=== PATIENT | male | born 1995 | race Caucasian/White ===

== ENCOUNTER 2017-02-06 18:41 | Emergency (ER) | payer MEDICARE ==
--- NOTE | 2017-02-06 18:54 | ERPHSYRPT ---
- History of Present Illness Time Seen by Provider: 02/06/17 18:46 Source: patient Patient Subjective Stated Complaint: pt c/o toothache to rigth jaw for the past few days. Triage Nursing Assessment: pt pink, warm, dry. dental caries noted. pt afebrile. no facial swelling noted. Physician History: CC: tooth pain Hx: 21 y/o patient with right sided toothache on top and bottom for a couple of weeks. Some swelling. Has dental appt tomorrow. No fever. No other complaints. Severity: moderate Allergies/Adverse Reactions: levetiracetam [From [facility]] Adverse Reaction (Severe, Verified 02/06/17 18:50) MEAN morphine Adverse Reaction (Severe, Verified 02/06/17 18:50) Rash makes pt mean Home Medications: Carbamazepine 200 mg [Tegretol 200 MG] 400 mg PO BID 10/03/14 [History] Hx Tetanus, Diphtheria Vaccination/Date Given: Yes (up to date) Hx Influenza Vaccination/Date Given: No Hx Pneumococcal Vaccination/Date Given: No Immunizations Up to Date: Yes - Review of Systems Constitutional: No Fever Ears, Nose, & Throat: Mouth Pain Respiratory: No Dyspnea Abdominal/Gastrointestinal: No Vomiting - Past Medical History Pertinent Past Medical History: Yes Neurological History: Seizures ENT History: No Pertinent History Cardiac History: No Pertinent History Respiratory History: No Pertinent History Endocrine Medical History: No Pertinent History Musculoskeletal History: No Pertinent History GI Medical History: No Pertinent History History: No Pertinent History Psycho-Social History: Anxiety, Attention Deficit Disorder, Bipolar, Depression , Other Male Reproductive Disorders: No Pertinent History Other Medical History: MRSA - left shoulder wound - Past Surgical History Past Surgical History: Yes Neuro Surgical History: No Pertinent History Cardiac: No Pertinent History Respiratory: No Pertinent History Gastrointestinal: No Pertinent History Genitourinary: No Pertinent History Musculoskeletal: No Pertinent History Male Surgical History: No Pertinent History Other Surgical History: TONSILS - Social History Smoking Status: Never smoker (chews) How long have you smoked: 7 years Exposure to second hand smoke: Yes Drug Use: none Patient Lives Alone: No Significant Family History: no pertinent family hx - Nursing Vital Signs Nursing Vital Signs: Initial Vital Signs Temperature 98.0 F Temperature Source Oral Pulse Rate 98 Respiratory Rate 18 Blood Pressure [Right Arm] 136/80 Pain Intensity 9 - Physical Exam General Appearance: alert Eye Exam: bilateral eye: PERRL, EOMI Throat Exam: pharynx normal Neck Exam: normal inspection, non-tender, supple Cardiovascular/Respiratory Exam: regular rate/rhythm Neurologic Exam: alert, oriented x 3, cooperative Skin Exam: warm, dry, No rash SpO2: 98 Oxygen Delivery: Room Air Comments: poor dentition with gingival disease. Caries. Tender right lower premolar and right upper 1st molar with some surrounding swelling. No trismus. No facial cellulitis. - Course Nursing assessment & vital signs reviewed: Yes - Progress Progress Note: 02/06/17 18:52 Advised dental follow up. Rx amoxil and motrin. Counseled pt/family regarding: diagnosis, need for follow-up - Departure Time of Disposition: 18:53 Departure Disposition: Home Clinical Impression: Tooth ache, odontogenic abscess Condition: Stable Critical Care Time: No Referrals: JEFFERY PIERRE [Primary Care Provider] - Instructions: Tooth Decay Additional Instructions: Rx amoxil. Rx motrin=ibuprofen for pain. See dentist as soon as possible for recheck. Prescriptions: Ibuprofen 1 tab PO Q6H PRN PRN #24 tablet PRN Reason: pain Amoxicillin [Amoxil] 1 cap PO TID #30 capsule
[2017-02-06 19:00] VITALS: BP 118/70; PULSE 78; O2SAT 100
== END 2017-02-06 19:00 | disposition home or self-care (01) ==
LOC: ED 18:41
DX: K08.89 Other specified disorders of teeth and supporting structures (principal); K04.7 Periapical abscess without sinus; K05.10 Chronic gingivitis, plaque induced; K02.9 Dental caries, unspecified
CPT/HCPCS: 99282; 99283

== ENCOUNTER 2017-03-03 18:02 | Emergency (ER) | payer MEDICARE ==
[2017-03-03 18:11] VITALS: BP 118/55; PULSE 59; O2SAT 100
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
== END 2017-03-03 18:56 | disposition home or self-care (01) ==
LOC: ED 18:02
DX: K00.7 Teething syndrome (principal)
CPT/HCPCS: 99281

== ENCOUNTER 2018-03-22 15:38 | Emergency (ER) | payer MEDICARE ==
[2018-03-22 15:51] VITALS: BP 131/81; PULSE 80; O2SAT 99
--- NOTE | 2018-03-22 16:06 | ERPHSYRPT ---
- History of Present Illness Time Seen by Provider: 03/22/18 15:58 Source: patient Exam Limitations: no limitations Patient Subjective Stated Complaint: Abscess to right shoulder and right lower leg Triage Nursing Assessment: Pt presents to the ED with complaints of abscess to right upper arm and right lower leg. Pt states onset x2 days. Wounds are scabbed , mild redness noted around both scabs. No distress noted, skin pwd. Pt states drainage from wounds x2 days. Physician History: The patient is a 22-year-old male with his mother complaining of a abscess on his right shoulder and an abscess on his right lower leg for 2 days. He has scratched, picked, and squeezed them without producing pus. He's also poked needles in without any pus. The one on his leg is beginning to hurt. He has had MRSA before and is worried. He denies fever or chills. His past medical history is significant for seizure disorder and MRSA infections. Timing/Duration: yesterday Quality: painful Severity: moderate Location: extremities (right shoulder and right lower leg.) Possible Causes: no cause identified Associated Symptoms: rash Allergies/Adverse Reactions: levetiracetam [From [facility]] Adverse Reaction (Severe, Verified 03/03/17 18:03) MEAN morphine Adverse Reaction (Severe, Verified 03/03/17 18:03) Rash makes pt mean Home Medications: Divalproex Sodium ER 250 mg [Depakote EXTENDED RELEASE 250 MG] 500 mg PO BID 03/03/17 [History] Hx Tetanus, Diphtheria Vaccination/Date Given: Yes Hx Influenza Vaccination/Date Given: No Hx Pneumococcal Vaccination/Date Given: No Immunizations Up to Date: No - Review of Systems Constitutional: No Fever, No Chills Eyes: No Symptoms Ears, Nose, & Throat: No Symptoms Respiratory: No Cough, No Dyspnea Cardiac: No Chest Pain, No Edema, No Syncope Abdominal/Gastrointestinal: No Abdominal Pain, No Nausea, No Vomiting, No Diarrhea Genitourinary Symptoms: No Dysuria Musculoskeletal: No Back Pain, No Neck Pain Skin: Cellulitis Neurological: No Dizziness, No Focal Weakness, No Sensory Changes Psychological: No Symptoms Endocrine: No Symptoms Hematologic/Lymphatic: No Symptoms Immunological/Allergic: No Symptoms All Other Systems: Reviewed and Negative - Past Medical History Pertinent Past Medical History: Yes Neurological History: Seizures ENT History: No Pertinent History Cardiac History: No Pertinent History Respiratory History: No Pertinent History Endocrine Medical History: No Pertinent History Musculoskeletal History: No Pertinent History GI Medical History: No Pertinent History History: No Pertinent History Psycho-Social History: Anxiety, Attention Deficit Disorder, Bipolar, Depression , Other Male Reproductive Disorders: No Pertinent History Other Medical History: MRSA - left shoulder wound. spleen injury - Past Surgical History Past Surgical History: Yes Neuro Surgical History: No Pertinent History Cardiac: No Pertinent History Respiratory: No Pertinent History Gastrointestinal: No Pertinent History Genitourinary: No Pertinent History Musculoskeletal: No Pertinent History Male Surgical History: No Pertinent History Other Surgical History: TONSILS - Social History Smoking Status: Current every day smoker How long have you smoked: 10 years Exposure to second hand smoke: Yes Drug Use: marijuana Patient Lives Alone: No Significant Family History: no pertinent family hx - Nursing Vital Signs Nursing Vital Signs: Initial Vital Signs Temperature 97.9 F 03/22/18 15:46 Pulse Rate 80 03/22/18 15:46 Respiratory Rate 16 03/22/18 15:46 Blood Pressure 131/81 03/22/18 15:46 O2 Sat by Pulse Oximetry 99 03/22/18 15:46 Pain Scale Pain Intensity 4 - Physical Exam General Appearance: no apparent distress, alert Eye Exam: PERRL/EOMI, eyes nml inspection Ears, Nose, Throat Exam: normal ENT inspection, pharynx normal, moist mucous membranes Neck Exam: normal inspection, non-tender, supple, full range of motion Respiratory Exam: normal breath sounds, lungs clear, No respiratory distress Cardiovascular Exam: regular rate/rhythm, normal heart sounds Gastrointestinal/Abdomen Exam: soft, mass, No tenderness Rectal Exam: not done Back Exam: normal inspection, normal range of motion, No CVA tenderness, No vertebral tenderness Extremity Exam: normal inspection, normal range of motion Neurologic Exam: alert, oriented x 3, cooperative, normal mood/affect, sensation nml, No motor deficits Skin Exam: normal color, other (Examination of the right anterior shoulder and upper arm reveals an approximate 1 cm circular abscess without fluctuance. There is surrounding erythema of minimal proportion. Examination of the right lower leg reveals a 1 cm circular abscess without fluctuance. There is significant surrounding erythema and tenderness.) SpO2 Interpretation: normal SpO2: 99 Oxygen Delivery: Room Air - Progress Progress: unchanged Counseled pt/family regarding: diagnosis, need for follow-up - Departure Time of Disposition: 16:13 Departure Disposition: Home Clinical Impression: Cellulitis Condition: Stable Critical Care Time: No Referrals: JEFFERY PIERRE [Primary Care Provider] - Additional Instructions: You have 2 areas of cellulitis. Take clindamycin 3 mg 4 times a day for 10 days. Take Tylenol No. 3 one tablet every 4-6 hours as needed for pain. You may also take ibuprofen 800 mg every 8 hours for pain. Follow-up in 2-3 days if no improvement. Prescriptions: Clindamycin HCl 1 cap PO QID #40 capsule Codeine Phosphate/APAP #3 [Tylenol #3 Tablet] 1 tab PO Q4-6HPRN PRN #10 tablet PRN Reason: Pain
== END 2018-03-22 16:32 | disposition home or self-care (01) ==
LOC: ED 15:38
DX: L03.113 Cellulitis of right upper limb (principal); L03.115 Cellulitis of right lower limb
CPT/HCPCS: 99283

== ENCOUNTER 2019-04-17 00:24 | Emergency (ER) | payer MEDICARE ==
[2019-04-17] MEDS ORDERED: Adacel Vial IM ONE ×2 (01:12→01:41)
[2019-04-17] MEDS ORDERED: BACIGUENT PACKET TP ONE (01:12)
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
[2019-04-17] MEDS ORDERED: BACIGUENT PACKET ONE (01:40)
[2019-04-17 01:54] LABS: BASOPHIL % 0.1 % (0.0-0.4); Basophil (Absolute #) 0.01 (0-0.4); Eosinophil % 1.7 % (0.00-5.0); Eosinophil (Absolute #) 0.25 (0-0.5); Granulocyte Absolute (ANC) 9.92 (1.4-6.9); Granulocytes % 68.6 % (36.0-66.0); Hematocrit 39.3 % (42-50); Hemoglobin 13.4 gm/dl (12.5-18.0); Lymphocyte (Absolute #) 2.67 (1.0-4.6); Lymphocytes % 18.5 % (24.0-44.0); Mean Cell Volume 88.3 fl (78-100); Mean Corpuscular Hemoglobin 30.1 pg (26-32); Mean Corpuscular Hgb Concent. 34.1 g/dl (32-36); Mean Platelet Volume 10.8 fl (6-9.5); Monocyte (Absolute #) 1.61 (0.0-1.3); Monocytes % 11.1 % (0.0-12.0); Platelet Count 293 K/mm3 (150-450); Red Blood Count 4.45 M/mm3 (4.1-5.6); White Blood Count 14.5 K/mm3 (4.0-10.5)
[2019-04-17 02:00] LABS: ALBUMIN 4.1 g/dL (3.5-5.0); ALKALINE PHOSPHATASE 101 U/L (38-126); ANION GAP 10.8 MEQ/L (5-15); BLOOD UREA NITROGEN 17 mg/dL (9-20); CHLORIDE 104 mmol/L (98-107); Carbon Dioxide 27 mmol/L (22-30); Creatinine 1 0.78 mg/dL (0.66-1.25); Glucose 94 mg/dL (74-106); Potassium 3.2 mmol/L (3.5-5.1); SGOT/AST 61 U/L (17-59); SGPT/ALT 18 U/L (0-50); SODIUM 139 mmol/L (137-145); Total Protein 7.2 g/dL (6.3-8.2)
[2019-04-17 02:03] LABS: ACETAMINOPHEN < 10 ug/ml (10-30); ETHYL ALCOHOL < 10 mg/dL (0-10); SALICYLATE < 1.0 mg/dL (2-20)
[2019-04-17 02:43] LABS: Appearance SLIGHTLY CLOUDY (CLEAR); Bilirubin NEGATIVE (NEGATIVE); Blood NEGATIVE Ery/ul (0-5); Glucose NEGATIVE (NEGATIVE); Ketones NEGATIVE (NEGATIVE); Leukocyte Esterase TRACE (NEGATIVE); Mucus SLIGHT /HPF (NEGATIVE); Nitrite NEGATIVE (NEGATIVE); Protein,Urine Dip 30 (Negative); RBC 0-2 /HPF (0-2); Specific Gravity 1.028 (1.005-1.025); Urobilinogen 4 mg/dL (0-1)
[2019-04-17 02:45] LABS: Bacteria NONE SEEN /HPF (NEGATIVE)
[2019-04-17 02:54] LABS: Barbiturate,Urine NEGATIVE (NEGATIVE); Benzodiazepine,Urine NEGATIVE (NEGATIVE); Cocaine,Urine NEGATIVE (NEGATIVE); Methadone,Urine NEGATIVE (NEGATIVE); Opiate,Urine NEGATIVE (NEGATIVE); PCP,Urine NEGATIVE (NEGATIVE); THC,Urine POSITIVE (NEGATIVE)
[2019-04-17 03:41] LABS: Amphetamine,Urine POSITIVE (NEGATIVE)
[2019-04-17 05:32] VITALS: BP 102/57; PULSE 80; O2SAT 98
== END 2019-04-17 05:34 | disposition short-term general hospital (02) ==
LOC: ED 00:24
DX: R45.851 Suicidal ideations (principal); F15.10 Other stimulant abuse, uncomplicated; F12.10 Cannabis abuse, uncomplicated; R45.4 Irritability and anger; F31.9 Bipolar disorder, unspecified; Z86.14 Personal history of Methicillin resistant Staphylococcus aureus infection; Z79.899 Other long term (current) drug therapy
CPT/HCPCS: 36415; 80053; 80307; 81001; 85025; 87086; 90471; 93005; 99285; G0480; G0481; 90715; A9270-GY

== ENCOUNTER 2019-12-06 13:34 | Emergency (ER) | payer MEDICARE ==
[2019-12-06] MEDS ORDERED: BACIGUENT PACKET TP ONE (13:47)
[2019-12-06] MEDS ORDERED: BACIGUENT PACKET ONE (13:52)
[2019-12-06 14:00] LABS: Absolute Neutrophil Ct (ANC) 13.31 (1.4-6.9); BASOPHIL % 0.2 % (0.0-0.4); Basophil (Absolute #) 0.03 (0-0.4); Eosinophil % 0.4 % (0.00-5.0); Eosinophil (Absolute #) 0.07 (0-0.5); Hematocrit 41.2 % (42-50); Hemoglobin 14.3 gm/dl (12.5-18.0); Lymphocyte (Absolute #) 2.16 (1.0-4.6); Lymphocytes % 12.2 % (24.0-44.0); Mean Cell Volume 85.1 fl (78-100); Mean Corpuscular Hemoglobin 29.5 pg (26-32); Mean Corpuscular Hgb Concent. 34.7 g/dl (32-36); Mean Platelet Volume 10.1 fl (7.5-11.0); Monocytes % 11.9 % (0.0-12.0); Neutrophil % 75.3 % (36.0-66.0); Platelet Count 338 K/mm3 (150-450); Red Blood Count 4.84 M/mm3 (4.1-5.6); Red Cell Distribution Width 13.4 % (11.5-14.0); White Blood Count 17.7 K/mm3 (4.0-10.5)
--- NOTE | 2019-12-06 14:00 | ERPHSYRPT ---
- History of Present Illness Time Seen by Provider: 12/06/19 13:35 Source: patient Exam Limitations: no limitations Patient Subjective Stated Complaint: Pt c/o of wounds on his right back shoulder , large reddened area on right shoulder blade with what appears to be 2 abrasions, pt denies injury, pt states that it just appeared within the past couple of hours and he is acting in an odd behavior, very fidgety, unable to explain what is going on Triage Nursing Assessment: Pt brought to the ER by his mother, mother states that pt continues to "freak out" and keeps pulling at his sweatshirt, pt keeps looking all around the room and is unable to focus, pt has to abrasion looking wounds to the right shoulder blade, top layer of skin missing, tachycardic, pulses normal Physician History: Patient complains of burning sensation to posterior right shoulder that he states came on spontaneously. Patient states he has a history of MRSA and is concerned for this. Patient denies any injury to the area. Timing/Duration: today, constant, sudden Quality: burning, painful Severity: moderate Location: torso Possible Causes: no cause identified Associated Symptoms: paresthesia, rash, No blisters, No change in skin texture, No difficulty breathing, No edema, No fever, No flushing, No headache, No hives , No jaundice, No malaise, No nasal congestion, No numbness, No pallor, No petechiae, No sore throat, No tingling Allergies/Adverse Reactions: levetiracetam [From [facility]] Adverse Reaction (Severe, Verified 12/06/19 13:53) MEAN morphine Adverse Reaction (Severe, Verified 12/06/19 13:53) Rash makes pt mean Hx Tetanus, Diphtheria Vaccination/Date Given: No Hx Influenza Vaccination/Date Given: No Hx Pneumococcal Vaccination/Date Given: No Immunizations Up to Date: Yes (Tdap: 04/17/2019 ) - Review of Systems Constitutional: No Fever, No Chills Eyes: No Eye Pain, No Vision Changes Ears, Nose, & Throat: No Symptoms, No Nose Congestion, No Mouth Swelling, No Hoarse, No Painful Swallowing Respiratory: No Cough, No Dyspnea Cardiac: No Chest Pain, No Edema, No Syncope Abdominal/Gastrointestinal: No Abdominal Pain, No Nausea, No Vomiting, No Diarrhea Genitourinary Symptoms: No Dysuria, No Hematuria, No Flank Pain Musculoskeletal: No Back Pain, No Neck Pain Skin: Cellulitis, No Pruritis Neurological: No Dizziness, No Focal Weakness, No Headache, No Seizure, No Sensory Changes Psychological: No Symptoms, No Alcohol Abuse, No Drug Abuse Endocrine: No Symptoms, No Polyuria Hematologic/Lymphatic: No Easy Bleeding, No Easy Bruising Immunological/Allergic: No Eczema All Other Systems: Reviewed and Negative - Past Medical History Pertinent Past Medical History: Yes Neurological History: Seizures ENT History: No Pertinent History Cardiac History: No Pertinent History Respiratory History: No Pertinent History Endocrine Medical History: No Pertinent History Musculoskeletal History: No Pertinent History GI Medical History: No Pertinent History History: No Pertinent History Psycho-Social History: Anxiety, Attention Deficit Disorder, Bipolar, Depression , Other Male Reproductive Disorders: No Pertinent History Other Medical History: MRSA - left shoulder wound. spleen injury - Past Surgical History Past Surgical History: Yes Neuro Surgical History: No Pertinent History Cardiac: No Pertinent History Respiratory: No Pertinent History Gastrointestinal: No Pertinent History Genitourinary: No Pertinent History Musculoskeletal: No Pertinent History Male Surgical History: No Pertinent History Other Surgical History: TONSILS - Social History Smoking Status: Current every day smoker How long have you smoked: 12 yrs Exposure to second hand smoke: Yes Drug Use: none Patient Lives Alone: Yes Significant Family History: no pertinent family hx - Nursing Vital Signs Nursing Vital Signs: Initial Vital Signs Temperature 97.9 F 12/06/19 13:41 Pulse Rate 110 H 12/06/19 13:41 Blood Pressure 133/114 12/06/19 13:41 O2 Sat by Pulse Oximetry 96 12/06/19 13:41 Pain Scale Pain Intensity 0 - Physical Exam General Appearance: no apparent distress, alert Eye Exam: PERRL/EOMI, eyes nml inspection, No scleral icterus Ears, Nose, Throat Exam: normal ENT inspection, pharynx normal, moist mucous membranes, dry mucous membranes, No pharyngeal erythema, No tonsillar exudate Neck Exam: normal inspection, non-tender, supple, full range of motion, No limited range of motion, No lymphadenopathy, No midline tenderness Respiratory Exam: normal breath sounds, lungs clear, airway intact, No chest tenderness, No respiratory distress, No diminished breath sounds, No accessory muscle use, No prolonged expirations, No crackles/rales Cardiovascular Exam: regular rate/rhythm, normal heart sounds, normal peripheral pulses, capillary refill <2 sec Gastrointestinal/Abdomen Exam: soft, normal bowel sounds, mass, No tenderness, No distention, No guarding, No ecchymosis Back Exam: normal inspection, normal range of motion, No CVA tenderness, No vertebral tenderness, No rash, No point tenderness Extremity Exam: normal inspection, normal range of motion Neurologic Exam: alert, oriented x 3, cooperative, superintendent local II-XII nml as tested, normal mood/affect, sensation nml, No motor deficits Skin Exam: normal color, warm, dry, rash (surrounding erythema around the two abrasions), abrasion (times two at the posterior, superior right shoulder), No petechiae, No jaundice, No cyanosis, No diaphoresis, No jaundice, No laceration SpO2 Interpretation: normal SpO2: 96 O2 Delivery: Room Air - Course Nursing assessment & vital signs reviewed: Yes - Radiology Exams Right Shoulder X-ray Interpretation: Interpreted by me, Reviewed by me, No Fracture, Nml Alignment, Nml Soft Tissues Ordered Tests: Active Orders 24 hr Category Date Time Status IV Insertion STAT Care 12/06/19 13:57 Active Wound Care STAT Care 12/06/19 13:58 Active SHOULDER Stat Exams 12/06/19 13:48 Taken ACETAMINOPHEN Stat Lab 12/06/19 13:50 Completed BLOOD CULTURE Stat Lab 12/06/19 14:30 Received CBC W DIFF Stat Lab 12/06/19 13:45 Completed CMP Stat Lab 12/06/19 13:50 Completed CULTURE,URINE Stat Lab 12/06/19 15:35 Received CULTURE,WOUND Stat Lab 12/06/19 14:08 Received ETHYL ALCOHOL Stat Lab 12/06/19 13:50 Completed Lactic Acid Stat Lab 12/06/19 13:45 Completed PROTIME WITH INR Stat Lab 12/06/19 14:08 Completed PTT Stat Lab 12/06/19 14:08 Completed SALICYLATE Stat Lab 12/06/19 13:50 Completed SED RATE [Erythrocyte Sedimentation Rate] Stat Lab 12/06/19 13:50 Completed UA W/RFX UR CULTURE Stat Lab 12/06/19 15:35 Completed Urine Triage Profile Stat Lab 12/06/19 15:35 Completed Medication Summary Discontinued Medications Generic Name Dose Route Start Last Admin Trade Name Freq PRN Reason Stop Dose Admin Bacitracin Zinc 0.9 gm 12/06/19 13:47 12/06/19 13:58 Baciguent Packet TP 12/06/19 13:48 0.9 gm STAT ONE Administration Bacitracin Zinc Confirm 12/06/19 13:52 Baciguent Packet Administered 12/06/19 13:53 Dose 1 gm .ROUTE .STK-MED ONE Diphenhydramine HCl 50 mg 12/06/19 15:18 12/06/19 15:28 Benadryl 50 Mg/Ml IV 12/06/19 15:19 50 mg STAT ONE Administration Diphenhydramine HCl Confirm 12/06/19 15:27 Benadryl 50 Mg/Ml Administered 12/06/19 15:28 Dose 50 mg .ROUTE .STK-MED ONE Clindamycin HCl/Dextrose 600 mg in 50 mls @ 100 mls/hr 12/06/19 14:05 14:42 Clindamycin-D5w 600 Mg/50 Ml IV 12/06/19 14:34 Infused STAT STA Infusion Clindamycin HCl/Dextrose Confirm 12/06/19 14:09 Clindamycin-D5w 600 Mg/50 Ml Administered 12/06/19 14:10 Dose 600 mg in 50 mls @ ud IV .STK-MED ONE Potassium Chloride 40 meq 12/06/19 14:18 12/06/19 14:40 Klor Con 10 Meq PO 12/06/19 14:19 40 meq STAT ONE Administration Potassium Chloride Confirm 12/06/19 14:39 Klor Con 10 Meq Administered 12/06/19 14:40 Dose 40 meq PO .STK-MED ONE Lab/Rad Data: Laboratory Result Diagrams 12/06/19 13:45 12/06/19 13:50 Laboratory Results 12/06/19 12/06/19 12/06/19 Range/Units 15:35 15:35 14:08 WBC (4.0-10.5) K/mm3 RBC (4.1-5.6) M/mm3 Hgb (12.5-18.0) gm/dl Hct (42-50) % MCV (78-100) fl MCH (26-32) pg MCHC (32-36) g/dl RDW (11.5-14.0) % Plt Count (150-450) K/mm3 MPV (7.5-11.0) fl Gran % (36.0-66.0) % Eos # (Auto) (0-0.5) Absolute Lymphs (auto) (1.0-4.6) Absolute Monos (auto) (0.0-1.3) Lymphocytes % (24.0-44.0) % Monocytes % (0.0-12.0) % Eosinophils % (0.00-5.0) % Basophils % (0.0-0.4) % Absolute Granulocytes (1.4-6.9) Basophils # (0-0.4) ESR (0-15) mm/hr PT 14.2 H (8.83-12.87) SECONDS INR 1.25 (0.8-3.0) APTT 33.7 (24.1-36.1) SECONDS Sodium (137-145) mmol/L Potassium (3.5-5.1) mmol/L Chloride (98-107) mmol/L Carbon Dioxide (22-30) mmol/L Anion Gap (5-15) MEQ/L BUN (9-20) mg/dL Creatinine (0.66-1.25) mg/dL Estimated GFR ML/MIN Glucose (74-106) mg/dL Lactic Acid (0.4-2.0) Calcium (8.4-10.2) mg/dL Total Bilirubin (0.2-1.3) mg/dL AST (17-59) U/L ALT (0-50) U/L Alkaline Phosphatase (38-126) U/L Serum Total Protein (6.3-8.2) g/dL Albumin (3.5-5.0) g/dL Urine Color YELLOW (YELLOW) Urine Appearance SLIGHTLY CLOUDY (CLEAR) Urine pH 5.0 (5-6) Ur Specific [place] 1.021 (1.005-1.025) Urine Protein NEGATIVE (Negative) Urine Ketones TRACE (NEGATIVE) Urine Blood NEGATIVE (0-5) Lloyd/ul Urine Nitrite NEGATIVE (NEGATIVE) Urine Bilirubin NEGATIVE (NEGATIVE) Urine Urobilinogen 2 (0-1) mg/dL Ur Leukocyte Esterase NEGATIVE (NEGATIVE) Urine WBC (Auto) 0-2 (0-5) /HPF Urine RBC (Auto) NONE (0-2) /HPF U Epithel Cells (Auto) NONE (FEW) /HPF Urine Bacteria (Auto) NONE (NEGATIVE) /HPF Urine Mucus (Auto) SLIGHT (NEGATIVE) /HPF Urine Culture Reflexed ORDERED SEPARATELY (NO) Urine Glucose NEGATIVE (NEGATIVE) mg/dL Salicylates (2-20) mg/dL Urine Opiates Level NEGATIVE (NEGATIVE) Ur Methadone NEGATIVE (NEGATIVE) Acetaminophen (10-30) ug/ml Urine Barbiturates NEGATIVE (NEGATIVE) Ur Phencyclidine (PCP) NEGATIVE (NEGATIVE) Urine Amphetamine POSITIVE (NEGATIVE) U Benzodiazepine Level NEGATIVE (NEGATIVE) Urine Cocaine NEGATIVE (NEGATIVE) Urine Marijuana (THC) NEGATIVE (NEGATIVE) Ethyl Alcohol (0-10) mg/dL Slides for Path Review 12/06/19 12/06/19 12/06/19 Range/Units 13:50 13:50 13:50 WBC (4.0-10.5) K/mm3 RBC (4.1-5.6) M/mm3 Hgb (12.5-18.0) gm/dl Hct (42-50) % MCV (78-100) fl MCH (26-32) pg MCHC (32-36) g/dl RDW (11.5-14.0) % Plt Count (150-450) K/mm3 MPV (7.5-11.0) fl Gran % (36.0-66.0) % Eos # (Auto) (0-0.5) Absolute Lymphs (auto) (1.0-4.6) Absolute Monos (auto) (0.0-1.3) Lymphocytes % (24.0-44.0) % Monocytes % (0.0-12.0) % Eosinophils % (0.00-5.0) % Basophils % (0.0-0.4) % Absolute Granulocytes (1.4-6.9) Basophils # (0-0.4) ESR 10 (0-15) mm/hr PT (8.83-12.87) SECONDS INR (0.8-3.0) APTT (24.1-36.1) SECONDS Sodium (137-145) mmol/L Potassium (3.5-5.1) mmol/L Chloride (98-107) mmol/L Carbon Dioxide (22-30) mmol/L Anion Gap (5-15) MEQ/L BUN (9-20) mg/dL Creatinine (0.66-1.25) mg/dL Estimated GFR ML/MIN Glucose (74-106) mg/dL Lactic Acid (0.4-2.0) Calcium (8.4-10.2) mg/dL Total Bilirubin (0.2-1.3) mg/dL AST (17-59) U/L ALT (0-50) U/L Alkaline Phosphatase (38-126) U/L Serum Total Protein (6.3-8.2) g/dL Albumin (3.5-5.0) g/dL Urine Color (YELLOW) Urine Appearance (CLEAR) Urine pH (5-6) Ur Specific [place] (1.005-1.025) Urine Protein (Negative) Urine Ketones (NEGATIVE) Urine Blood (0-5) Lloyd/ul Urine Nitrite (NEGATIVE) Urine Bilirubin (NEGATIVE) Urine Urobilinogen (0-1) mg/dL Ur Leukocyte Esterase (NEGATIVE) Urine WBC (Auto) (0-5) /HPF Urine RBC (Auto) (0-2) /HPF U Epithel Cells (Auto) (FEW) /HPF Urine Bacteria (Auto) (NEGATIVE) /HPF Urine Mucus (Auto) (NEGATIVE) /HPF Urine Culture Reflexed (NO) Urine Glucose (NEGATIVE) mg/dL Salicylates < 1.0 L (2-20) mg/dL Urine Opiates Level (NEGATIVE) Ur Methadone (NEGATIVE) Acetaminophen < 10 L (10-30) ug/ml Urine Barbiturates (NEGATIVE) Ur Phencyclidine (PCP) (NEGATIVE) Urine Amphetamine (NEGATIVE) U Benzodiazepine Level (NEGATIVE) Urine Cocaine (NEGATIVE) Urine Marijuana (THC) (NEGATIVE) Ethyl Alcohol < 10 (0-10) mg/dL Slides for Path Review 12/06/19 12/06/19 12/06/19 Range/Units 13:50 13:45 13:45 WBC 17.7 H (4.0-10.5) K/mm3 RBC 4.84 (4.1-5.6) M/mm3 Hgb 14.3 (12.5-18.0) gm/dl Hct 41.2 L (42-50) % MCV 85.1 (78-100) fl MCH 29.5 (26-32) pg MCHC 34.7 (32-36) g/dl RDW 13.4 (11.5-14.0) % Plt Count 338 (150-450) K/mm3 MPV 10.1 (7.5-11.0) fl Gran % 75.3 H (36.0-66.0) % Eos # (Auto) 0.07 (0-0.5) Absolute Lymphs (auto) 2.16 (1.0-4.6) Absolute Monos (auto) 2.10 H (0.0-1.3) Lymphocytes % 12.2 L (24.0-44.0) % Monocytes % 11.9 (0.0-12.0) % Eosinophils % 0.4 (0.00-5.0) % Basophils % 0.2 (0.0-0.4) % Absolute Granulocytes 13.31 H (1.4-6.9) Basophils # 0.03 (0-0.4) ESR (0-15) mm/hr PT (8.83-12.87) SECONDS INR (0.8-3.0) APTT (24.1-36.1) SECONDS Sodium 139 (137-145) mmol/L Potassium 3.4 L (3.5-5.1) mmol/L Chloride 104 (98-107) mmol/L Carbon Dioxide 26 (22-30) mmol/L Anion Gap 12.5 (5-15) MEQ/L BUN 15 (9-20) mg/dL Creatinine 0.85 (0.66-1.25) mg/dL Estimated GFR > 60.0 ML/MIN Glucose 111 H (74-106) mg/dL Lactic Acid 1.4 (0.4-2.0) Calcium 9.8 (8.4-10.2) mg/dL Total Bilirubin 0.80 (0.2-1.3) mg/dL AST 40 (17-59) U/L ALT 46 (0-50) U/L Alkaline Phosphatase 136 H (38-126) U/L Serum Total Protein 8.3 H (6.3-8.2) g/dL Albumin 4.8 (3.5-5.0) g/dL Urine Color (YELLOW) Urine Appearance (CLEAR) Urine pH (5-6) Ur Specific [place] (1.005-1.025) Urine Protein (Negative) Urine Ketones (NEGATIVE) Urine Blood (0-5) Lloyd/ul Urine Nitrite (NEGATIVE) Urine Bilirubin (NEGATIVE) Urine Urobilinogen (0-1) mg/dL Ur Leukocyte Esterase (NEGATIVE) Urine WBC (Auto) (0-5) /HPF Urine RBC (Auto) (0-2) /HPF U Epithel Cells (Auto) (FEW) /HPF Urine Bacteria (Auto) (NEGATIVE) /HPF Urine Mucus (Auto) (NEGATIVE) /HPF Urine Culture Reflexed (NO) Urine Glucose (NEGATIVE) mg/dL Salicylates (2-20) mg/dL Urine Opiates Level (NEGATIVE) Ur Methadone (NEGATIVE) Acetaminophen (10-30) ug/ml Urine Barbiturates (NEGATIVE) Ur Phencyclidine (PCP) (NEGATIVE) Urine Amphetamine (NEGATIVE) U Benzodiazepine Level (NEGATIVE) Urine Cocaine (NEGATIVE) Urine Marijuana (THC) (NEGATIVE) Ethyl Alcohol (0-10) mg/dL Slides for Path Review YES - Progress Progress: improved Progress Note: 12/06/19 16:35 Patient's pulse has improved after IV hydration, IV clindamycin and IV Benadryl. Patient appears in no type of distress and has small decrease in redness to right posterior shoulder. 12/06/19 16:43 I reviewed the patient and patient's family about the methamphetamine on his drug screen. Patient denies any usage, but grandmother was in agreement that his behavior that was strained earlier in the visit and most likely causes tachycardia and probable elevated white count is most likely due to this and cause him to take a scan that lead to cellulitis of his right posterior shoulder. Patient did not require inpatient admission at this time and will be discharged with Bactrim to be twice daily for 10 days as well as hydroxyzine to help his Benadryl helped calm him down today. Patient is instructed on no further amphetamine use of any type and to consider counseling and attending AA/ NA meetings in the future. Counseled pt/family regarding: lab results, diagnosis, need for follow-up, rad results - Departure Departure Disposition: Home Clinical Impression: Cellulitis of right shoulder, Abrasion of right shoulder, initial encounter, Methamphetamine abuse, Elevated blood pressure reading without diagnosis of hypertension, Hypokalemia Condition: Good Critical Care Time: No Referrals: JEFFERY PIERRE [Primary Care Provider] - Follow Up with PCP/3 days Instructions: Cellulitis (Skin Infection), Adult (DC), Skin Abrasions (DC), Methamphetamine, Hypokalemia (DC) Additional Instructions: return immediately back to the emergency department if you have any fever, worsening redness to the back or shoulder, worsening pain to the shoulder, difficulty breathing, chest pain, abdominal pain, or any other concerning signs or symptoms that were not present at today's return visit for immediate reevaluation in the emergency department. Prescriptions: hydrOXYzine HCL [Hydroxyzine HCl] 50 mg PO Q6H PRN PRN #20 tablet PRN Reason: Itching Smz/Tmp Ds Tablet [Bactrim Ds Tablet] 1 tab PO Q12H #20 tablet
[2019-12-06] MEDS ORDERED: CLINDAMYCIN-D5W 600 MG/50 ML*** 600 MG/50 ML BAG IV STA (14:05)
[2019-12-06] MEDS ORDERED: CLINDAMYCIN-D5W 600 MG/50 ML*** 600 MG/50 ML BAG IV ONE (14:09)
[2019-12-06 14:11] LABS: INR 1.25 (0.8-3.0); PROTIME 14.2 SECONDS (8.83-12.87)
[2019-12-06 14:14] LABS: PTT 33.7 SECONDS (24.1-36.1)
[2019-12-06 14:14] LABS: ALBUMIN 4.8 g/dL (3.5-5.0); ALKALINE PHOSPHATASE 136 U/L (38-126); ANION GAP 12.5 MEQ/L (5-15); BLOOD UREA NITROGEN 15 mg/dL (9-20); CHLORIDE 104 mmol/L (98-107); Calcium 9.8 mg/dL (8.4-10.2); Carbon Dioxide 26 mmol/L (22-30); Creatinine 1 0.85 mg/dL (0.66-1.25); Glucose 111 mg/dL (74-106); Potassium 3.4 mmol/L (3.5-5.1); SGOT/AST 40 U/L (17-59); SGPT/ALT 46 U/L (0-50); SODIUM 139 mmol/L (137-145); Total Protein 8.3 g/dL (6.3-8.2)
[2019-12-06 14:16] LABS: ACETAMINOPHEN < 10 ug/ml (10-30); SALICYLATE < 1.0 mg/dL (2-20)
[2019-12-06] MEDS ORDERED: Klor Con 10 MEQ PO ONE ×2 (14:18→14:39)
[2019-12-06 14:35] LABS: Slide Review 1 YES
[2019-12-06] MEDS ORDERED: BENADRYL 50 MG/ML IV ONE (15:18)
[2019-12-06] MEDS ORDERED: BENADRYL 50 MG/ML ONE (15:27)
[2019-12-06 15:45] LABS: Appearance SLIGHTLY CLOUDY (CLEAR); Bilirubin NEGATIVE (NEGATIVE); Blood NEGATIVE Ery/ul (0-5); Glucose NEGATIVE (NEGATIVE); Ketones TRACE (NEGATIVE); Leukocyte Esterase NEGATIVE (NEGATIVE); Mucus SLIGHT /HPF (NEGATIVE); Nitrite NEGATIVE (NEGATIVE); Protein,Urine Dip NEGATIVE (Negative); Specific Gravity 1.021 (1.005-1.025); Urobilinogen 2 mg/dL (0-1); WBC 0-2 /HPF (0-5)
[2019-12-06 15:53] LABS: Barbiturate,Urine NEGATIVE (NEGATIVE); Benzodiazepine,Urine NEGATIVE (NEGATIVE); Cocaine,Urine NEGATIVE (NEGATIVE); Methadone,Urine NEGATIVE (NEGATIVE); Opiate,Urine NEGATIVE (NEGATIVE); PCP,Urine NEGATIVE (NEGATIVE); THC,Urine NEGATIVE (NEGATIVE)
[2019-12-06 16:32] VITALS: BP 138/86; PULSE 88
[2019-12-06 16:35] LABS: Amphetamine,Urine POSITIVE (NEGATIVE)
[2019-12-06 16:40] VITALS: O2SAT 96
--- NOTE | 2019-12-06 20:54 | XRAY ---
Indication: Posterior abrasion. Comparison: None 3 views of the right shoulder demonstrates tiny humeral head bone island. No other bony, articular, or soft tissue abnormalities.
== END 2019-12-06 17:05 | disposition home or self-care (01) ==
LOC: ED 13:34
DX: L03.113 Cellulitis of right upper limb (principal); S40.211A Abrasion of right shoulder, initial encounter; F19.10 Other psychoactive substance abuse, uncomplicated; R03.0 Elevated blood-pressure reading, without diagnosis of hypertension; E87.6 Hypokalemia; Z86.14 Personal history of Methicillin resistant Staphylococcus aureus infection; D72.829 Elevated white blood cell count, unspecified
CPT/HCPCS: 36000; 36415; 73030; 80053; 80307; 81001; 83605; 85025; 85610; 85652; 85730; 87040; 87070; 87077; 87086; 87186; 96374; 99284; G0480; G0481; J1200; A9270-GY

== ENCOUNTER 2020-03-29 23:16 | Emergency (ER) | payer MEDICARE ==
[2020-03-30 00:06] LABS: Absolute Neutrophil Ct (ANC) 8.72 (1.4-6.9); BASOPHIL % 0.2 % (0.0-0.4); Basophil (Absolute #) 0.02 (0-0.4); Eosinophil (Absolute #) 0.12 (0-0.5); Hematocrit 42.8 % (42-50); Hemoglobin 14.7 gm/dl (12.5-18.0); Lymphocytes % 17.6 % (24.0-44.0); Mean Cell Volume 87.2 fl (78-100); Mean Corpuscular Hemoglobin 29.9 pg (26-32); Mean Corpuscular Hgb Concent. 34.3 g/dl (32-36); Mean Platelet Volume 11.4 fl (7.5-11.0); Monocyte (Absolute #) 1.41 (0.0-1.3); Monocytes % 11.3 % (0.0-12.0); Neutrophil % 69.9 % (36.0-66.0); Platelet Count 232 K/mm3 (150-450); Red Blood Count 4.91 M/mm3 (4.1-5.6); Red Cell Distribution Width 13.7 % (11.5-14.0); White Blood Count 12.5 K/mm3 (4.0-10.5)
--- NOTE | 2020-03-30 00:06 | ERPHSYRPT ---
- History of Present Illness Time Seen by Provider: 03/29/20 23:51 Source: patient, other (Mother) Exam Limitations: no limitations, other Patient Subjective Stated Complaint: "About 4 o'clock last night i took a capsule that was supposed to adderall. Then everything got blurry and real hot." Triage Nursing Assessment: . Physician History: 24 yo wm who took 1 tablet of Adderall on 03/28/20 presents w palpatations/anxie ty/shortness of breath. Pt states that someone gave him the Adderall and denies suicidal intent. He also denies fever/chest pain/nausea/vomiting/diarrhea/focal weakness/BERNAL. Timing/Duration: today Severity: mild Modifying Factors: Improves With: nothing. Worsens With: cold therapy, eating, immobilization, medication, movement, rest, acetaminophen, ibuprofen Associated Symptoms: shortness of breath, No nausea, No vomiting, No abdominal pain, No heartburn, No diaphoresis, No cough, No chills, No chest pain, No fever, No headaches, No loss of appetite, No malaise, No rash, No syncope, No seizure, No weakness Allergies/Adverse Reactions: levetiracetam [From [facility]] Adverse Reaction (Severe, Verified 03/29/20 23:24) MEAN morphine Adverse Reaction (Severe, Verified 03/29/20 23:24) Rash makes pt mean Hx Tetanus, Diphtheria Vaccination/Date Given: No Hx Influenza Vaccination/Date Given: No Hx Pneumococcal Vaccination/Date Given: No Travel Risk - International Travel Have you traveled outside of the country in past 3 weeks: No - Coronavirus Screening Are you exhibiting any of the following symptoms?: No Close contact with a COVID-19 positive Pt in past 14-21 Days: No - Review of Systems Constitutional: No Fever, No Chills, No Fatigue, No Lethargy, No Malaise, No Night Sweats, No Weakness, No Weight Loss Eyes: No Discharge, No Eye Pain, No Eye Redness, No Itchy, No Photophobia, No Tearing, No Vision Changes, No Double Vision, No Foreign Body Sensation Ears, Nose, & Throat: No Ear Pain, No Ear Discharge, No Hearing Changes, No Tinnitus, No Nose Pain, No Nose Congestion, No Nose Discharge, No Sinus Drainage, No Epistaxis, No Mouth Pain, No Mouth Swelling, No Throat Pain, No Throat Swelling, No Hoarse, No Painful Swallowing, No Snoring Respiratory: No Cough, No Cyanosis, No Dyspnea, No Dyspnea on Exertion (ROBERSON), No Stridor, No Wheezing Cardiac: Palpitations, No Chest Pain, No Edema, No Syncope, No Orthopnea Abdominal/Gastrointestinal: No Symptoms, No Abdominal Pain, No Nausea, No Vomiting, No Diarrhea, No Constipation, No Hematemesis, No Hematochezia, No Melena, No Dysphagia, No Appetite Changes Genitourinary Symptoms: No Dysuria, No Frequency, No Hematuria, No Hesitancy, No Incontinence, No Urgency, No Urinary Retention, No Flank Pain, No Testicle Pain, No Penile Discharge Musculoskeletal: No Arthralgias, No Back Pain, No Neck Pain, No Deformity, No Fall, No Injury, No Joint Redness, No Joint Pain, No Joint Swelling, No Myalgias Skin: No Cellulitis, No Decubiti, No Induration, No Pruritis, No Rash, No Skin Lesions, No Dryness Neurological: Lethargy, No Dizziness, No Focal Weakness, No Gait Changes, No Headache, No Irritability, No Paralysis, No Parasthesia, No Seizure, No Sensory Changes, No Speech Changes, No Tics, No Tremors, No Vertigo Psychological: Drug Abuse, No Alcohol Abuse, No Anxiety, No Depression, No Suicidal Ideations, No Homicidal Ideations, No Emotional Lability, No Hallucinations, No Memory Loss, No Mood Changes Endocrine: No Polyuria, No Polydipsia, No Hair Changes, No Cold Intolerance, No Excessive Sweating, No Goiter Hematologic/Lymphatic: No Symptoms Immunological/Allergic: No Symptoms - Past Medical History Pertinent Past Medical History: Yes Neurological History: Seizures ENT History: No Pertinent History Cardiac History: No Pertinent History Respiratory History: No Pertinent History Endocrine Medical History: No Pertinent History Musculoskeletal History: No Pertinent History GI Medical History: No Pertinent History History: No Pertinent History Psycho-Social History: Anxiety, Attention Deficit Disorder, Bipolar, Depression, Other Male Reproductive Disorders: No Pertinent History Other Medical History: MRSA - left shoulder wound. spleen injury - Past Surgical History Past Surgical History: Yes Neuro Surgical History: No Pertinent History Cardiac: No Pertinent History Respiratory: No Pertinent History Gastrointestinal: No Pertinent History Genitourinary: No Pertinent History Musculoskeletal: No Pertinent History Male Surgical History: No Pertinent History Other Surgical History: TONSILS - Social History Smoking Status: Current every day smoker How long have you smoked: 12 yrs Exposure to second hand smoke: Yes Drug Use: marijuana Patient Lives Alone: Yes Significant Family History: no pertinent family hx - Nursing Vital Signs Nursing Vital Signs: Initial Vital Signs Temperature 98.8 F 03/29/20 23:16 Pulse Rate 94 H 03/29/20 23:16 Respiratory Rate 20 03/29/20 23:16 Blood Pressure 118/74 03/29/20 23:16 O2 Sat by Pulse Oximetry 97 03/29/20 23:16 Pain Scale Pain Intensity 10 - Physical Exam SpO2: 97 - Course Nursing assessment & vital signs reviewed: Yes EKG Interpreted by Me: RATE (NSR/Rate97/Normal QT-QTc/No acute changes) Ordered Tests: Active Orders 24 hr Category Date Time Status EKG-ER Only STAT Care 03/29/20 23:50 Active CBC W DIFF Stat Lab 03/29/20 23:49 Completed UA W/RFX UR CULTURE Stat Lab 03/29/20 23:49 Completed Lab/Rad Data: Laboratory Result Diagrams 03/30/20 00:00 03/29/20 00:00 Laboratory Results 03/30/20 03/30/20 03/29/20 Range/Units 00:00 00:00 00:00 WBC 12.5 H (4.0-10.5) K/mm3 RBC 4.91 (4.1-5.6) M/mm3 Hgb 14.7 (12.5-18.0) gm/dl Hct 42.8 (42-50) % MCV 87.2 (78-100) fl MCH 29.9 (26-32) pg MCHC 34.3 (32-36) g/dl RDW 13.7 (11.5-14.0) % Plt Count 232 (150-450) K/mm3 MPV 11.4 H (7.5-11.0) fl Gran % 69.9 H (36.0-66.0) % Eos # (Auto) 0.12 (0-0.5) Absolute Lymphs (auto) 2.20 (1.0-4.6) Absolute Monos (auto) 1.41 H (0.0-1.3) Lymphocytes % 17.6 L (24.0-44.0) % Monocytes % 11.3 (0.0-12.0) % Eosinophils % 1.0 (0.00-5.0) % Basophils % 0.2 (0.0-0.4) % Absolute Granulocytes 8.72 H (1.4-6.9) Basophils # 0.02 (0-0.4) Sodium (137-145) mmol/L Potassium (3.5-5.1) mmol/L Chloride (98-107) mmol/L Carbon Dioxide (22-30) mmol/L Anion Gap (5-15) MEQ/L BUN (9-20) mg/dL Creatinine (0.66-1.25) mg/dL Estimated GFR ML/MIN Glucose (74-106) mg/dL Calcium (8.4-10.2) mg/dL Total Bilirubin (0.2-1.3) mg/dL AST (17-59) U/L ALT (0-50) U/L Alkaline Phosphatase (38-126) U/L Troponin I (0.000-0.034) ng/mL Serum Total Protein (6.3-8.2) g/dL Albumin (3.5-5.0) g/dL Urine Color [place] (YELLOW) Urine Appearance SLIGHTLY CLOUDY (CLEAR) Urine pH 5.0 (5-6) Ur Specific [place] 1.027 (1.005-1.025) Urine Protein NEGATIVE (Negative) Urine Ketones NEGATIVE (NEGATIVE) Urine Blood MODERATE (0-5) Lloyd/ul Urine Nitrite NEGATIVE (NEGATIVE) Urine Bilirubin NEGATIVE (NEGATIVE) Urine Urobilinogen 4 (0-1) mg/dL Ur Leukocyte Esterase NEGATIVE (NEGATIVE) Urine WBC (Auto) 3-5 (0-5) /HPF Urine RBC (Auto) 0-2 (0-2) /HPF U Hyaline Cast (Auto) 0-2 (0-2) /LPF U Epithel Cells (Auto) NONE (FEW) /HPF Urine Bacteria (Auto) NONE (NEGATIVE) /HPF Urine Mucus (Auto) SLIGHT (NEGATIVE) /HPF Urine Culture Reflexed NO (NO) Urine Glucose NEGATIVE (NEGATIVE) mg/dL Salicylates (2-20) mg/dL Urine Opiates Level NEGATIVE (NEGATIVE) Ur Methadone NEGATIVE (NEGATIVE) Acetaminophen (10-30) ug/ml Urine Barbiturates NEGATIVE (NEGATIVE) Ur Phencyclidine (PCP) NEGATIVE (NEGATIVE) Urine Amphetamine POSITIVE (NEGATIVE) U Benzodiazepine Level NEGATIVE (NEGATIVE) Urine Cocaine NEGATIVE (NEGATIVE) Urine Marijuana (THC) POSITIVE (NEGATIVE) Ethyl Alcohol (0-10) mg/dL 03/29/20 03/29/20 Range/Units 00:00 00:00 WBC (4.0-10.5) K/mm3 RBC (4.1-5.6) M/mm3 Hgb (12.5-18.0) gm/dl Hct (42-50) % MCV (78-100) fl MCH (26-32) pg MCHC (32-36) g/dl RDW (11.5-14.0) % Plt Count (150-450) K/mm3 MPV (7.5-11.0) fl Gran % (36.0-66.0) % Eos # (Auto) (0-0.5) Absolute Lymphs (auto) (1.0-4.6) Absolute Monos (auto) (0.0-1.3) Lymphocytes % (24.0-44.0) % Monocytes % (0.0-12.0) % Eosinophils % (0.00-5.0) % Basophils % (0.0-0.4) % Absolute Granulocytes (1.4-6.9) Basophils # (0-0.4) Sodium 135 L (137-145) mmol/L Potassium 3.4 L (3.5-5.1) mmol/L Chloride 99 (98-107) mmol/L Carbon Dioxide 26 (22-30) mmol/L Anion Gap 12.6 (5-15) MEQ/L BUN 14 (9-20) mg/dL Creatinine 0.89 (0.66-1.25) mg/dL Estimated GFR > 60.0 ML/MIN Glucose 98 (74-106) mg/dL Calcium 9.3 (8.4-10.2) mg/dL Total Bilirubin 0.70 (0.2-1.3) mg/dL AST 49 (17-59) U/L ALT 45 (0-50) U/L Alkaline Phosphatase 111 (38-126) U/L Troponin I < 0.012 (0.000-0.034) ng/mL Serum Total Protein 7.8 (6.3-8.2) g/dL Albumin 4.4 (3.5-5.0) g/dL Urine Color (YELLOW) Urine Appearance (CLEAR) Urine pH (5-6) Ur Specific [place] (1.005-1.025) Urine Protein (Negative) Urine Ketones (NEGATIVE) Urine Blood (0-5) Lloyd/ul Urine Nitrite (NEGATIVE) Urine Bilirubin (NEGATIVE) Urine Urobilinogen (0-1) mg/dL Ur Leukocyte Esterase (NEGATIVE) Urine WBC (Auto) (0-5) /HPF Urine RBC (Auto) (0-2) /HPF U Hyaline Cast (Auto) (0-2) /LPF U Epithel Cells (Auto) (FEW) /HPF Urine Bacteria (Auto) (NEGATIVE) /HPF Urine Mucus (Auto) (NEGATIVE) /HPF Urine Culture Reflexed (NO) Urine Glucose (NEGATIVE) mg/dL Salicylates < 1.0 L (2-20) mg/dL Urine Opiates Level (NEGATIVE) Ur Methadone (NEGATIVE) Acetaminophen < 10 L (10-30) ug/ml Urine Barbiturates (NEGATIVE) Ur Phencyclidine (PCP) (NEGATIVE) Urine Amphetamine (NEGATIVE) U Benzodiazepine Level (NEGATIVE) Urine Cocaine (NEGATIVE) Urine Marijuana (THC) (NEGATIVE) Ethyl Alcohol < 10 (0-10) mg/dL - Progress Progress: unchanged Progress Note: 03/30/20 01:35 Pt stable throughout stay. He denies any suicidal/homocidal ideations. Counseled pt/family regarding: lab results, diagnosis, need for follow-up - Departure Departure Disposition: Home Clinical Impression: Substance abuse Condition: Stable Critical Care Time: No Referrals: JEFFERY PIERRE [Primary Care Provider] - Instructions: Marijuana Use and Addiction, Polysubstance Abuse (DC) Additional Instructions: Follow up with your family MD in 1-2 days Only take meds prescribed by your physician Return to ER as needed
[2020-03-30 00:18] LABS: ALBUMIN 4.4 g/dL (3.5-5.0); ALKALINE PHOSPHATASE 111 U/L (38-126); ANION GAP 12.6 MEQ/L (5-15); BLOOD UREA NITROGEN 14 mg/dL (9-20); CHLORIDE 99 mmol/L (98-107); Calcium 9.3 mg/dL (8.4-10.2); Carbon Dioxide 26 mmol/L (22-30); Creatinine 1 0.89 mg/dL (0.66-1.25); Glucose 98 mg/dL (74-106); Potassium 3.4 mmol/L (3.5-5.1); SGOT/AST 49 U/L (17-59); SGPT/ALT 45 U/L (0-50); SODIUM 135 mmol/L (137-145); Total Protein 7.8 g/dL (6.3-8.2)
[2020-03-30 00:19] LABS: ACETAMINOPHEN < 10 ug/ml (10-30); ETHYL ALCOHOL < 10 mg/dL (0-10); SALICYLATE < 1.0 mg/dL (2-20)
[2020-03-30 00:39] LABS: Appearance SLIGHTLY CLOUDY (CLEAR); Glucose NEGATIVE (NEGATIVE); Leukocyte Esterase NEGATIVE (NEGATIVE); Nitrite NEGATIVE (NEGATIVE); Protein,Urine Dip NEGATIVE (Negative); Specific Gravity 1.027 (1.005-1.025)
[2020-03-30 00:40] LABS: Bilirubin NEGATIVE (NEGATIVE); Blood MODERATE Ery/ul (0-5); Hyaline Casts 0-2 /LPF (0-2); Ketones NEGATIVE (NEGATIVE); Mucus SLIGHT /HPF (NEGATIVE); RBC 0-2 /HPF (0-2); Urobilinogen 4 mg/dL (0-1)
[2020-03-30 00:51] LABS: Barbiturate,Urine NEGATIVE (NEGATIVE); Benzodiazepine,Urine NEGATIVE (NEGATIVE); Cocaine,Urine NEGATIVE (NEGATIVE); Methadone,Urine NEGATIVE (NEGATIVE); Opiate,Urine NEGATIVE (NEGATIVE); PCP,Urine NEGATIVE (NEGATIVE); THC,Urine POSITIVE (NEGATIVE)
[2020-03-30 01:31] LABS: Amphetamine,Urine POSITIVE (NEGATIVE)
[2020-03-30 01:53] VITALS: BP 92/48; PULSE 80; O2SAT 96
== END 2020-03-30 01:53 | disposition home or self-care (01) ==
LOC: ED 23:16
DX: F10.10 Alcohol abuse, uncomplicated (principal)
CPT/HCPCS: 36415; 80053; 80307; 81001; 84484; 85025; 93005; G0480; 99284

== ENCOUNTER 2020-06-01 18:59 | Emergency (ER) | payer MEDICARE ==
[2020-06-01] MEDS ORDERED: TORAdol 30 mg Injection IM ONE (19:59)
[2020-06-01] MEDS ORDERED: CLINDAMYCIN-D5W 600 MG/50 ML*** 600 MG/50 ML BAG IV STA (20:00)
[2020-06-01] MEDS ORDERED: TORAdol 30 mg Injection ONE (20:09)
[2020-06-01] MEDS ORDERED: CLINDAMYCIN-D5W 600 MG/50 ML*** 600 MG/50 ML BAG IV ONE (20:10)
--- NOTE | 2020-06-01 20:40 | ERPHSYRPT ---
- History of Present Illness Time Seen by Provider: 06/01/20 19:22 Source: patient Exam Limitations: no limitations Patient Subjective Stated Complaint: pt states he has lower jaw pain and swelling that started today. Triage Nursing Assessment: pt alert and oriented, answers questions approp. pt ambulatory with steady gait noted. respirations nonlabored with lungs cta. swelling noted to lt lower jaw. redness noted to skin lt lower jaw. Physician History: Patient is a 24-year-old male presents to our ED for evaluation of dental abscess. Patient states his dental abscess and swelling and was observed today. Pain described as an ache that is localized to the left mandibular molar. No trauma. No fever. No difficulty swallowing or tolerating secretions. Pain is well localized. Pain worse with mastication. Pain improved with rest. Patient otherwise healthy. Patient voices no other complaints at this time. Timing/Duration: today Severity: moderate Modifying Factors: Improves With: other Associated Symptoms: No nausea, No vomiting, No abdominal pain, No shortness of breath, No heartburn, No diaphoresis, No cough, No chills, No chest pain, No fever, No headaches, No loss of appetite, No malaise, No syncope, No seizure, No weakness Allergies/Adverse Reactions: levetiracetam [From [facility]] Adverse Reaction (Severe, Verified 06/01/20 19:27) MEAN morphine Adverse Reaction (Severe, Verified 06/01/20 19:27) Rash makes pt mean Hx Tetanus, Diphtheria Vaccination/Date Given: Yes Hx Influenza Vaccination/Date Given: No Hx Pneumococcal Vaccination/Date Given: No Immunizations Up to Date: Yes Travel Risk - International Travel Have you traveled outside of the country in past 3 weeks: No - Coronavirus Screening Are you exhibiting any of the following symptoms?: No Close contact with a COVID-19 positive Pt in past 14-21 Days: No - Review of Systems Constitutional: No Symptoms, No Fever, No Chills Eyes: No Symptoms Ears, Nose, & Throat: No Symptoms Respiratory: No Symptoms, No Cough, No Dyspnea Cardiac: No Symptoms, No Chest Pain, No Edema, No Syncope Abdominal/Gastrointestinal: No Symptoms, No Abdominal Pain, No Nausea, No Vomiting, No Diarrhea Genitourinary Symptoms: No Symptoms, No Dysuria Musculoskeletal: No Symptoms, No Back Pain, No Neck Pain Skin: No Symptoms, No Rash Neurological: No Symptoms, No Dizziness, No Focal Weakness, No Sensory Changes Psychological: No Symptoms Endocrine: No Symptoms Hematologic/Lymphatic: No Symptoms Immunological/Allergic: No Symptoms All Other Systems: Reviewed and Negative - Past Medical History Pertinent Past Medical History: Yes Neurological History: Seizures ENT History: No Pertinent History Cardiac History: No Pertinent History Respiratory History: No Pertinent History Endocrine Medical History: No Pertinent History Musculoskeletal History: No Pertinent History GI Medical History: No Pertinent History History: No Pertinent History Psycho-Social History: Anxiety, Attention Deficit Disorder, Bipolar, Depression, Other Male Reproductive Disorders: No Pertinent History Other Medical History: MRSA - left shoulder wound. spleen injury - Past Surgical History Past Surgical History: Yes Neuro Surgical History: No Pertinent History Cardiac: No Pertinent History Respiratory: No Pertinent History Gastrointestinal: No Pertinent History Genitourinary: No Pertinent History Musculoskeletal: No Pertinent History Male Surgical History: No Pertinent History Other Surgical History: TONSILS - Social History Smoking Status: Current every day smoker How long have you smoked: 12 yrs Exposure to second hand smoke: Yes Drug Use: none Patient Lives Alone: Yes Significant Family History: no pertinent family hx - Nursing Vital Signs Nursing Vital Signs: Initial Vital Signs Temperature 98.0 F 06/01/20 19:17 Pulse Rate 84 06/01/20 19:17 Respiratory Rate 18 06/01/20 19:17 Blood Pressure 114/70 06/01/20 19:17 O2 Sat by Pulse Oximetry 97 06/01/20 19:17 Pain Scale Pain Intensity 9 - Physical Exam General Appearance: no apparent distress, alert Eye Exam: PERRL/EOMI, eyes nml inspection Ears, Nose, Throat Exam: normal ENT inspection, TMs normal, pharynx normal, moist mucous membranes, other (Patient has a dental abscess at tooth #19. Trismus. Uvula midline. No sublingual masses. No findings consistent with Payal's angina. No trauma.) Neck Exam: normal inspection, non-tender, supple, full range of motion Respiratory Exam: normal breath sounds, lungs clear, No respiratory distress Cardiovascular Exam: regular rate/rhythm, normal heart sounds, normal peripheral pulses Gastrointestinal/Abdomen Exam: soft, normal bowel sounds, No tenderness, No mass Back Exam: normal inspection, normal range of motion, No CVA tenderness, No vertebral tenderness Extremity Exam: normal inspection, normal range of motion, pelvis stable Neurologic Exam: alert, oriented x 3, cooperative, normal mood/affect, nml cerebellar function, nml station & gait, sensation nml, No motor deficits Skin Exam: normal color, warm, dry, No rash Lymphatic Exam: No adenopathy SpO2 Interpretation: normal SpO2: 97 O2 Delivery: Room Air - Course Nursing assessment & vital signs reviewed: Yes Ordered Tests: Medication Summary Discontinued Medications Generic Name Dose Route Start Last Admin Trade Name Meghna PRN Reason Stop Dose Admin Clindamycin HCl/Dextrose 600 mg in 50 mls @ 100 mls/hr 06/01/20 20:00 06/01/20 20:14 Clindamycin-D5w 600 Mg/50 Ml IV 06/01/20 20:29 100 mls/hr STAT STA 100 mls/hr Administration Clindamycin HCl/Dextrose Confirm 06/01/20 20:10 Clindamycin-D5w 600 Mg/50 Ml Administered 06/01/20 20:11 Dose 600 mg in 50 mls @ ud IV .STK-MED ONE Ketorolac Tromethamine 60 mg 06/01/20 19:59 06/01/20 20:11 Toradol 30 Mg Injection IM 06/01/20 20:00 60 mg STAT ONE Administration Ketorolac Tromethamine Confirm 06/01/20 20:09 Toradol 30 Mg Injection Administered 06/01/20 20:10 Dose 60 mg .ROUTE .STK-MED ONE - Progress Progress: improved Progress Note: 06/01/20 20:40 Patient reassessed. Pain improved after administration of Toradol. IM clindamycin administered. A prescription for the same was provided. Patient will follow-up with his dentist within 48 hours for reevaluation. Counseled pt/family regarding: diagnosis, need for follow-up - Departure Departure Disposition: Home Clinical Impression: Pain, dental, Dental abscess Condition: Stable Critical Care Time: No Referrals: JEFFERY PIERRE [Primary Care Provider] - Additional Instructions: Discharge/Care Plan TARIQJOANKULWANTROSALES AUSTIN was seen on 06/01/20 in the Emergency Room. The patient was counseled regarding Diagnosis,Lab results, Imaging studies, need for follow up and when to return to the Emergency Room. Prescriptions given: Discharge Note I have spoken with the patient and/or caregivers. I have explained the patient's condition, diagnosis and treatment plan based on the information available to me at this time. I have answered the patient's and/or caregiver's questions and addressed any concerns. The patient and/or caregivers have as good understanding of the patient's diagnosis, condition and treatment plan as can be expected at this point. The vital signs have been stable. The patient's condition is stable and appropriate for discharge from the emergency department. The patient will pursue further outpatient evaluation with the primary care physician or other designated or consulting physician as outlined in the discharge instructions. The patient and/or caregivers are agreeable to this plan of care and follow-up instructions have been explained in detail. The patient and/or caregivers have received these instruction. The patient/and or caregivers are aware that any significant change in condition or worsening of symptoms should prompt an immediate return to this or the closest emergency department or call 911. Prescriptions: Clindamycin HCl 150 mg [Cleocin 150 mg Capsule] 2 cap PO QID 7 Days #56 capsule Ketorolac Tromethamine [Toradol] 10 mg PO TID 5 Days #15 tablet
[2020-06-01 21:44] VITALS: BP 114/66; PULSE 90; O2SAT 98
== END 2020-06-01 21:35 | disposition home or self-care (01) ==
LOC: ED 18:59
DX: K08.89 Other specified disorders of teeth and supporting structures (principal); K04.7 Periapical abscess without sinus
CPT/HCPCS: 36000; 96365; 96372; 99284; J1885

== ENCOUNTER 2020-08-15 04:59 | Emergency (ER) | payer MEDICARE ==
[2020-08-15 05:09] VITALS: BP 132/85; PULSE 91; O2SAT 99
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
== END 2020-08-15 05:46 | disposition home or self-care (01) ==
LOC: ED 04:59
DX: Z04.1 Encounter for examination and observation following transport accident (principal)
CPT/HCPCS: 99283

== ENCOUNTER 2020-11-23 16:49 | Emergency (ER) | payer MEDICARE ==
[2012-09-17 09:26] VITALS: BP 130/75
== END 2020-11-23 16:55 | disposition left against medical advice (07) ==
LOC: ED 16:49
DX: Z53.9 Procedure and treatment not carried out, unspecified reason (principal)

== ENCOUNTER 2020-11-29 09:44 | Emergency (ER) | payer MEDICARE ==
[2020-11-29 09:58] VITALS: BP 154/96; PULSE 91; O2SAT 98
[2020-11-29] MEDS ORDERED: Sodium Chloride 0.9% 1000 ML 1,000 ML IV STA (10:05)
[2020-11-29] MEDS ORDERED: Zofran 4 MG/2 ML VIAL IV ONE (10:07)
[2020-11-29] MEDS ORDERED: Sodium Chloride 0.9% 1000 ML 1,000 ML ONE (10:22)
[2020-11-29] MEDS ORDERED: Zofran 4 MG/2 ML VIAL ONE (10:22)
[2020-11-29 10:34] LABS: Absolute Neutrophil Ct (ANC) 9.89 (1.4-6.9); BASOPHIL % 0.1 % (0.0-0.4); Basophil (Absolute #) 0.02 (0-0.4); Eosinophil % 0.2 % (0.00-5.0); Eosinophil (Absolute #) 0.03 (0-0.5); Hematocrit 40.7 % (42-50); Hemoglobin 13.5 gm/dl (12.5-18.0); Lymphocyte (Absolute #) 2.49 (1.0-4.6); Lymphocytes % 18.7 % (24.0-44.0); Mean Cell Volume 88.1 fl (78-100); Mean Corpuscular Hemoglobin 29.2 pg (26-32); Mean Corpuscular Hgb Concent. 33.2 g/dl (32-36); Mean Platelet Volume 9.9 fl (7.5-11.0); Monocyte (Absolute #) 0.91 (0.0-1.3); Monocytes % 6.8 % (0.0-12.0); Neutrophil % 74.2 % (36.0-66.0); Platelet Count 325 K/mm3 (150-450); Red Blood Count 4.62 M/mm3 (4.1-5.6); Red Cell Distribution Width 13.4 % (11.5-14.0); White Blood Count 13.3 K/mm3 (4.0-10.5)
--- NOTE | 2020-11-29 10:51 | ERPHSYRPT ---
- History of Present Illness Time Seen by Provider: 11/29/20 10:00 Exam Limitations: no limitations Patient Subjective Stated Complaint: pt here for vomiting and dizziness Triage Nursing Assessment: pt here for vomiiting 10 times today with dizziness. has not felt well for 3 days, pt alert, resp easy, skin w/d/p. face mask in place Physician History: Patient is a 25-year-old male presents to our ED with complaints of nausea vomiting and dizziness. Patient states he began to feel unwell 3 days ago. Symptoms worsened yesterday. Patient states that he has vomited approximately 10 times over the past day. Symptoms are constant. No fever. No chest pain or shortness of breath. Patient denies pain. Symptoms are moderate in intensity. No specific worsening or improving factors. Patient is unaware of Covid exposure. Patient denies other complaints at this time. Timing/Duration: day(s) Severity: moderate (Symptoms started 3 days ago.) Modifying Factors: Improves With: nothing Associated Symptoms: No abdominal pain, No shortness of breath, No diaphoresis, No cough, No chills, No chest pain, No fever, No headaches, No loss of appetite, No malaise, No rash, No syncope, No seizure, No weakness Allergies/Adverse Reactions: levetiracetam [From [facility]] Adverse Reaction (Severe, Verified 11/29/20 09:57) MEAN/aggressive morphine Adverse Reaction (Severe, Verified 11/29/20 09:57) Rash makes pt mean Home Medications: Albuterol/Ipratropium cc [Combivent Inhaler COMMON CANISTER] 1 ea DAILY 11/29/20 [History] Citalopram Hydrobromide 20 mg* [ceLEXa 20 MG] 1 ea DAILY 11/29/20 [History] Hx Tetanus, Diphtheria Vaccination/Date Given: Yes Hx Influenza Vaccination/Date Given: No Hx Pneumococcal Vaccination/Date Given: No Immunizations Up to Date: Yes Travel Risk - International Travel Have you traveled outside of the country in past 3 weeks: No - Coronavirus Screening Are you exhibiting any of the following symptoms?: Yes Symptoms: Vomiting/Diarrhea Close contact with a COVID-19 positive Pt in past 14-21 Days: No - Review of Systems Constitutional: No Symptoms, No Fever, No Chills Eyes: No Symptoms Ears, Nose, & Throat: No Symptoms Respiratory: No Symptoms, No Cough, No Dyspnea Cardiac: No Symptoms, No Chest Pain, No Edema, No Syncope Abdominal/Gastrointestinal: No Symptoms, No Abdominal Pain, No Nausea, No Vomiting, No Diarrhea Genitourinary Symptoms: No Symptoms, No Dysuria Musculoskeletal: No Symptoms, No Back Pain, No Neck Pain Skin: No Symptoms, No Rash Neurological: No Symptoms, No Dizziness, No Focal Weakness, No Sensory Changes Psychological: No Symptoms Endocrine: No Symptoms Hematologic/Lymphatic: No Symptoms Immunological/Allergic: No Symptoms All Other Systems: Reviewed and Negative - Past Medical History Pertinent Past Medical History: Yes Neurological History: Seizures ENT History: No Pertinent History Cardiac History: No Pertinent History Respiratory History: No Pertinent History Endocrine Medical History: No Pertinent History Musculoskeletal History: No Pertinent History GI Medical History: No Pertinent History History: No Pertinent History Psycho-Social History: Anxiety, Attention Deficit Disorder, Bipolar, Depression, Other Male Reproductive Disorders: No Pertinent History Other Medical History: MRSA - left shoulder wound. spleen injury - Past Surgical History Past Surgical History: Yes Neuro Surgical History: No Pertinent History Cardiac: No Pertinent History Respiratory: No Pertinent History Gastrointestinal: No Pertinent History Genitourinary: No Pertinent History Musculoskeletal: No Pertinent History Male Surgical History: No Pertinent History Other Surgical History: TONSILS - Social History Smoking Status: Current every day smoker How long have you smoked: age 11 Exposure to second hand smoke: Yes Drug Use: none Patient Lives Alone: Yes Significant Family History: no pertinent family hx - Nursing Vital Signs Nursing Vital Signs: Initial Vital Signs Temperature 98.6 F 11/29/20 09:50 Pulse Rate 91 H 11/29/20 09:50 Respiratory Rate 16 11/29/20 09:50 Blood Pressure 154/96 11/29/20 09:50 O2 Sat by Pulse Oximetry 98 11/29/20 09:50 Pain Scale Pain Intensity 0 - Physical Exam General Appearance: no apparent distress, alert, other (Patient sitting up in bed. He is conversant well-appearing no acute distress. No obvious nausea or vomiting during my evaluation.) Eye Exam: PERRL/EOMI, eyes nml inspection Ears, Nose, Throat Exam: normal ENT inspection, TMs normal, pharynx normal, moist mucous membranes Neck Exam: normal inspection, non-tender, supple, full range of motion Respiratory Exam: normal breath sounds, lungs clear, airway intact, No chest tenderness, No respiratory distress, No diminished breath sounds, No accessory muscle use Cardiovascular Exam: regular rate/rhythm, normal heart sounds, normal peripheral pulses Gastrointestinal/Abdomen Exam: soft, normal bowel sounds, No tenderness, No mass Back Exam: normal inspection, normal range of motion, No CVA tenderness, No vertebral tenderness Extremity Exam: normal inspection, normal range of motion, pelvis stable Neurologic Exam: alert, oriented x 3, cooperative, normal mood/affect, nml cerebellar function, nml station & gait, sensation nml, No motor deficits Skin Exam: normal color, warm, dry, No rash Lymphatic Exam: No adenopathy SpO2 Interpretation: normal SpO2: 98 O2 Delivery: Room Air - Course Nursing assessment & vital signs reviewed: Yes Ordered Tests: Active Orders 24 hr Category Date Time Status IV Insertion STAT Care 11/29/20 10:05 Active CBC W DIFF Stat Lab 11/29/20 10:24 Completed CMP Stat Lab 11/29/20 10:24 Received LIPASE Stat Lab 11/29/20 10:24 Received TROPONIN Q3H Lab 11/29/20 10:24 Received TROPONIN Q3H Lab 11/29/20 13:15 Ordered TROPONIN Q3H Lab 11/29/20 16:15 Ordered TROPONIN Q3H Lab 11/29/20 19:15 Ordered TROPONIN Q3H Lab 11/29/20 22:15 Ordered UA W/RFX UR CULTURE Stat Lab 11/29/20 10:06 Ordered Urine Triage Profile Stat Lab 11/29/20 10:06 Ordered Medication Summary Generic Name Dose Route Start Last Admin Trade Name Freq PRN Reason Stop Dose Admin Sodium Chloride 1,000 mls @ 999 mls/hr 11/29/20 10:05 11/29/20 10:23 Sodium Chloride 0.9% 1000 Ml IV 11/29/20 11:05 999 mls/hr .Q1H1M STA Administration Discontinued Medications Generic Name Dose Route Start Last Admin Trade Name Freq PRN Reason Stop Dose Admin Sodium Chloride Confirm 11/29/20 10:22 Sodium Chloride 0.9% 1000 Ml Administered 11/29/20 10:23 Dose 1,000 mls @ ud .ROUTE .STK-MED ONE Ondansetron HCl 4 mg 11/29/20 10:07 11/29/20 10:24 Zofran 4 Mg/2 Ml Vial IV 11/29/20 10:08 4 mg STAT ONE Administration Ondansetron HCl Confirm 11/29/20 10:22 Zofran 4 Mg/2 Ml Vial Administered 11/29/20 10:23 Dose 4 mg .ROUTE .STK-MED ONE Lab/Rad Data: Laboratory Result Diagrams 11/29/20 10:24 Laboratory Results 11/29/20 Range/Units 10:24 WBC 13.3 H (4.0-10.5) K/mm3 RBC 4.62 (4.1-5.6) M/mm3 Hgb 13.5 (12.5-18.0) gm/dl Hct 40.7 L (42-50) % MCV 88.1 (78-100) fl MCH 29.2 (26-32) pg MCHC 33.2 (32-36) g/dl RDW 13.4 (11.5-14.0) % Plt Count 325 (150-450) K/mm3 MPV 9.9 (7.5-11.0) fl Gran % 74.2 H (36.0-66.0) % Eos # (Auto) 0.03 (0-0.5) Absolute Lymphs (auto) 2.49 (1.0-4.6) Absolute Monos (auto) 0.91 (0.0-1.3) Lymphocytes % 18.7 L (24.0-44.0) % Monocytes % 6.8 (0.0-12.0) % Eosinophils % 0.2 (0.00-5.0) % Basophils % 0.1 (0.0-0.4) % Absolute Granulocytes 9.89 H (1.4-6.9) Basophils # 0.02 (0-0.4) - Progress Progress: improved Progress Note: 11/29/20 10:54 Patient received some IV fluids. Patient states he feels better. No nausea or vomiting while in our ED. Patient notified staff that he would like to leave our ED. Patient states he has an emergency at home. Patient states his sister is at his mother's house that she does not feel well. Patient states it sounds like something serious but did not elaborate. Patient states that he will leave AGAINST MEDICAL ADVICE. An AMA form was completed. Patient understand that leaving AGAINST MEDICAL ADVICE can potentially result in delayed diagnosis, worsening of symptoms, increased risk morbidity, mortality, short long-term disability including . In spite of his risks patient has decided to leave AGAINST MEDICAL ADVICE. He is alert and appropriate to make informed and independent medical decisions. Patient understand that he may return to our ED at any time. Patient agrees to follow-up with his primary care doctor within 48 hours for reevaluation. We will discharge patient AMA this time. Patient voices no other complaints or concerns. Patient pulled his own IV out his arm. Patient left our ED before work-up results available. 11/29/20 10:58 - Departure Departure Disposition: AMA Clinical Impression: Nausea & vomiting, Dizziness Condition: Stable Critical Care Time: No Referrals: CHELSEA VALE MD [Primary Care Provider] -
[2020-11-29 10:57] LABS: ALBUMIN 4.7 g/dL (3.5-5.0); ALKALINE PHOSPHATASE 113 U/L (38-126); BLOOD UREA NITROGEN 8 mg/dL (9-20); CHLORIDE 103 mmol/L (98-107); Calcium 9.7 mg/dL (8.4-10.2); Carbon Dioxide 27 mmol/L (22-30); Creatinine 1 0.81 mg/dL (0.66-1.25); EST GLOMERULAR FILTRATION RATE > 60.0 ML/MIN; Glucose 118 mg/dL (74-106); LIPASE 52 U/L (23-300); Potassium 3.5 mmol/L (3.5-5.1); SGOT/AST 33 U/L (17-59); SGPT/ALT 26 U/L (0-50); SODIUM 137 mmol/L (137-145); Total Protein 7.7 g/dL (6.3-8.2)
[2020-11-29 11:03] LABS: Appearance CLEAR (CLEAR); Bilirubin NEGATIVE (NEGATIVE); Blood NEGATIVE Ery/ul (0-5); Glucose NEGATIVE (NEGATIVE); Ketones NEGATIVE (NEGATIVE); Leukocyte Esterase NEGATIVE (NEGATIVE); Nitrite NEGATIVE (NEGATIVE); Protein,Urine Dip NEGATIVE (Negative); Specific Gravity 1.002 (1.005-1.025); Urobilinogen NEGATIVE mg/dL (0-1)
[2020-11-29 11:18] LABS: Amphetamine,Urine NEGATIVE (NEGATIVE); Barbiturate,Urine NEGATIVE (NEGATIVE); Benzodiazepine,Urine NEGATIVE (NEGATIVE); Cocaine,Urine NEGATIVE (NEGATIVE); Methadone,Urine NEGATIVE (NEGATIVE); Opiate,Urine NEGATIVE (NEGATIVE); PCP,Urine NEGATIVE (NEGATIVE); THC,Urine NEGATIVE (NEGATIVE)
== END 2020-11-29 11:09 | disposition left against medical advice (07) ==
LOC: ED 09:44
DX: R11.2 Nausea with vomiting, unspecified (principal); R42 Dizziness and giddiness; F17.210 Nicotine dependence, cigarettes, uncomplicated
CPT/HCPCS: 36000; 36415; 80053; 80307; 81001; 83690; 84484; 85025; 96360; 96374; 99284; J2405

== ENCOUNTER 2020-11-29 15:32 | Emergency (ER) | payer MEDICARE ==
--- NOTE | 2020-11-29 16:23 | ERPHSYRPT ---
- History of Present Illness Time Seen by Provider: 11/29/20 16:30 Source: patient Patient Subjective Stated Complaint: pt arrived to er for 2nd time today stating that hes grandmother told him to be seen for abnormal labs, pt was seen this am and labs where normal, dr and nurse talked with grandmother with pts permission, and she stated he was to go to [facility], [facility] called with pt permission,they state they are trying to get an ID papers signed that pt was a threat to self. that he had a plan to kill self Triage Nursing Assessment: pt alert, and is a poor hisottian, skin w/d/p. resp easy Physician History: Patient is a 25-year-old male presents to our ED for the second time today. Patient was originally here with complaints of nausea vomiting and dizziness. Patient left AMA. Patient states he received a phone call from his grandmother who advised him to return to the ED as he had abnormal labs. Patient states that we called his grandmother and reported abnormal labs. However we did not call patient's grandmother. Due to this discrepancy we asked patient to call his grandmother on speaker phone. Patient agreed and stated that would be okay. Grandmother stated that she did not advise him to come to the ED for abnormal labs but did advise him that he should report to [facility]. We call [facility] after receiving consent from patient. [facility] reported to us that patient was suicidal. Patient denied suicidal/homicidal ideation at his initial visit. [facility] stated they had a bed for his admission. ESTELA order obtained via [employer]. Toxicology work-up completed for transfer to [facility]. Patient otherwise feels well. Patient states he is hungry. No nausea or vomiting. Patient tolerated p.o. Patient cooperative. He voices no other complaints or concerns at this time. Timing/Duration: today Severity: moderate Modifying Factors: Improves With: nothing Associated Symptoms: denies symptoms Allergies/Adverse Reactions: levetiracetam [From [facility]] Adverse Reaction (Severe, Verified 11/29/20 09:57) MEAN/aggressive morphine Adverse Reaction (Severe, Verified 11/29/20 09:57) Rash makes pt mean Home Medications: Albuterol/Ipratropium cc [Combivent Inhaler COMMON CANISTER] 1 ea DAILY 11/29/20 [History] Citalopram Hydrobromide 20 mg* [ceLEXa 20 MG] 1 ea DAILY 11/29/20 [History] Hx Tetanus, Diphtheria Vaccination/Date Given: Yes Hx Influenza Vaccination/Date Given: No Hx Pneumococcal Vaccination/Date Given: No Immunizations Up to Date: Yes Travel Risk - International Travel Have you traveled outside of the country in past 3 weeks: No - Coronavirus Screening Are you exhibiting any of the following symptoms?: No Close contact with a COVID-19 positive Pt in past 14-21 Days: No - Review of Systems Constitutional: No Symptoms, No Fever, No Chills Eyes: No Symptoms Ears, Nose, & Throat: No Symptoms Respiratory: No Symptoms, No Cough, No Dyspnea Cardiac: No Symptoms, No Chest Pain, No Edema, No Syncope Abdominal/Gastrointestinal: No Symptoms, No Abdominal Pain, No Nausea, No Vomiting, No Diarrhea Genitourinary Symptoms: No Symptoms, No Dysuria Musculoskeletal: No Symptoms, No Back Pain, No Neck Pain Skin: No Symptoms, No Rash Neurological: No Symptoms, No Dizziness, No Focal Weakness, No Sensory Changes Psychological: No Symptoms Endocrine: No Symptoms Hematologic/Lymphatic: No Symptoms Immunological/Allergic: No Symptoms All Other Systems: Reviewed and Negative - Past Medical History Pertinent Past Medical History: Yes Neurological History: Seizures ENT History: No Pertinent History Cardiac History: No Pertinent History Respiratory History: No Pertinent History Endocrine Medical History: No Pertinent History Musculoskeletal History: No Pertinent History GI Medical History: No Pertinent History History: No Pertinent History Psycho-Social History: Anxiety, Attention Deficit Disorder, Bipolar, Depression, Other Male Reproductive Disorders: No Pertinent History Other Medical History: MRSA - left shoulder wound. spleen injury - Past Surgical History Past Surgical History: Yes Neuro Surgical History: No Pertinent History Cardiac: No Pertinent History Respiratory: No Pertinent History Gastrointestinal: No Pertinent History Genitourinary: No Pertinent History Musculoskeletal: No Pertinent History Male Surgical History: No Pertinent History Other Surgical History: TONSILS - Social History Smoking Status: Current every day smoker How long have you smoked: age 11 Exposure to second hand smoke: Yes Drug Use: none Patient Lives Alone: Yes Significant Family History: no pertinent family hx - Nursing Vital Signs Nursing Vital Signs: Initial Vital Signs Temperature 97.2 F 11/29/20 16:26 Pulse Rate 78 11/29/20 16:26 Respiratory Rate 16 11/29/20 16:26 Blood Pressure 155/88 11/29/20 16:26 O2 Sat by Pulse Oximetry 98 11/29/20 16:26 Pain Scale Pain Intensity 0 - Physical Exam General Appearance: no apparent distress, alert Eye Exam: PERRL/EOMI, eyes nml inspection Ears, Nose, Throat Exam: normal ENT inspection, TMs normal, pharynx normal, moist mucous membranes Neck Exam: normal inspection, non-tender, supple, full range of motion Respiratory Exam: normal breath sounds, lungs clear, No respiratory distress Cardiovascular Exam: regular rate/rhythm, normal heart sounds, normal peripheral pulses Gastrointestinal/Abdomen Exam: soft, normal bowel sounds, No tenderness, No mass Back Exam: normal inspection, normal range of motion, No CVA tenderness, No vertebral tenderness Extremity Exam: normal inspection, normal range of motion, pelvis stable Neurologic Exam: alert, oriented x 3, cooperative, normal mood/affect, nml cerebellar function, nml station & gait, sensation nml, No motor deficits Skin Exam: normal color, warm, dry, No rash Lymphatic Exam: No adenopathy SpO2 Interpretation: normal SpO2: 98 O2 Delivery: Room Air - Course Nursing assessment & vital signs reviewed: Yes Ordered Tests: Active Orders 24 hr Category Date Time Status ACETAMINOPHEN Stat Lab 11/29/20 10:15 Completed SALICYLATE Stat Lab 11/29/20 10:15 Completed Lab/Rad Data: Laboratory Results 11/29/20 11/29/20 Range/Units 17:02 10:15 Salicylates < 1.0 L (2-20) mg/dL Acetaminophen < 10 L (10-30) ug/ml SARS-CoV-2 Ag (Rapid) NEGATIVE (NEGATIVE) - Progress Progress: improved Progress Note: Patient reassessed. He feels well. Has no complaints. Work-up essentially negative. Patient medically cleared. Patient is calm cooperative. [facility] accepts transfer. EMTALA information completed. Ground transport arranged. Patient transferred to [facility] for further evaluation and treatment. Patient voices no other complaints or concerns at this time. We will transfer at this time. Accepting provider is Willis. 11/29/20 19:08 11/29/20 19:09 Counseled pt/family regarding: lab results, diagnosis - Departure Departure Disposition: Transfer Clinical Impression: Suicidal ideation Condition: Good Critical Care Time: No Referrals: CHELSEA VALE MD [Primary Care Provider] -
[2020-11-29 16:29] LABS: ACETAMINOPHEN < 10 ug/ml (10-30); SALICYLATE < 1.0 mg/dL (2-20)
[2020-11-29 16:31] VITALS: PULSE 78; O2SAT 98
[2020-11-29 17:31] LABS: COVID AG -BINAX NOW RAPID TEST NEGATIVE (NEGATIVE)
[2020-11-29 18:56] VITALS: BP 138/69
== END 2020-11-29 18:57 | disposition short-term general hospital (02) ==
LOC: ED 15:32
DX: R45.851 Suicidal ideations (principal); F41.9 Anxiety disorder, unspecified; F32.9 Major depressive disorder, single episode, unspecified; F17.210 Nicotine dependence, cigarettes, uncomplicated
CPT/HCPCS: 36415; 80307; 99000; 99284; U0003

== ENCOUNTER 2020-12-10 01:45 | Observation (INO) | payer MEDICARE ==
[2020-12-10] MEDS ORDERED: Sodium Chloride 0.9% 1000 ML 1,000 ML IV STA (01:59)
[2020-12-10 02:16] LABS: Absolute Neutrophil Ct (ANC) 7.71 (1.4-6.9); BASOPHIL % 0.2 % (0.0-0.4); Basophil (Absolute #) 0.02 (0-0.4); Eosinophil % 0.7 % (0.00-5.0); Eosinophil (Absolute #) 0.09 (0-0.5); Hematocrit 43.3 % (42-50); Hemoglobin 14.5 gm/dl (12.5-18.0); Lymphocyte (Absolute #) 2.64 (1.0-4.6); Lymphocytes % 21.8 % (24.0-44.0); Mean Cell Volume 88.9 fl (78-100); Mean Corpuscular Hemoglobin 29.8 pg (26-32); Mean Corpuscular Hgb Concent. 33.5 g/dl (32-36); Mean Platelet Volume 9.9 fl (7.5-11.0); Monocyte (Absolute #) 1.65 (0.0-1.3); Monocytes % 13.6 % (0.0-12.0); Neutrophil % 63.7 % (36.0-66.0); Platelet Count 291 K/mm3 (150-450); Red Blood Count 4.87 M/mm3 (4.1-5.6); Red Cell Distribution Width 13.5 % (11.5-14.0); White Blood Count 12.1 K/mm3 (4.0-10.5)
[2020-12-10] MEDS ORDERED: Zofran 4 MG/2 ML VIAL IV ONE (02:17)
[2020-12-10] MEDS ORDERED: Zofran 4 MG/2 ML VIAL ONE (02:23)
[2020-12-10] MEDS ORDERED: Sodium Chloride 0.9% 1000 ML 1,000 ML ONE ×2 (02:23→03:07)
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
[2020-12-10 02:28] LABS: ACETAMINOPHEN < 10 ug/ml (10-30); ALKALINE PHOSPHATASE 99 U/L (38-126); ANION GAP 15.4 MEQ/L (5-15); BLOOD UREA NITROGEN 18 mg/dL (9-20); CHLORIDE 99 mmol/L (98-107); Calcium 10.2 mg/dL (8.4-10.2); Carbon Dioxide 26 mmol/L (22-30); Creatinine 1 0.95 mg/dL (0.66-1.25); EST GLOMERULAR FILTRATION RATE > 60.0 ML/MIN; ETHYL ALCOHOL < 10 mg/dL (0-10); Glucose 115 mg/dL (74-106); MAGNESIUM 2.2 mg/dL (1.6-2.3); Potassium 3.2 mmol/L (3.5-5.1); SALICYLATE < 1.0 mg/dL (2-20); SGOT/AST 46 U/L (17-59); SGPT/ALT 41 U/L (0-50); SODIUM 137 mmol/L (137-145); Total Protein 8.4 g/dL (6.3-8.2)
[2020-12-10 02:47] LABS: CK-Creatinine Phosphokinase 405 U/L (55-170); TROPONIN < 0.012 ng/mL (0.000-0.034)
[2020-12-10] MEDS ORDERED: POTASSIUM CHLORIDE 20 mEq IN WATER 100ML 20 MEQ/100 ML BAG IV ONE (02:48)
[2020-12-10 02:52] LABS: Appearance SLIGHTLY CLOUDY (CLEAR); Bilirubin NEGATIVE (NEGATIVE); Blood MODERATE Ery/ul (0-5); Glucose NEGATIVE (NEGATIVE); Ketones SMALL (NEGATIVE); Leukocyte Esterase NEGATIVE (NEGATIVE); Mucus SLIGHT /HPF (NEGATIVE); Nitrite NEGATIVE (NEGATIVE); Protein,Urine Dip 100 (Negative); RBC 0-2 /HPF (0-2); Specific Gravity 1.025 (1.005-1.025); Urobilinogen 2 mg/dL (0-1); WBC 0-2 /HPF (0-5)
[2020-12-10 02:53] LABS: Bacteria NONE SEEN /HPF (NEGATIVE)
[2020-12-10 02:55] LABS: Barbiturate,Urine NEGATIVE (NEGATIVE); Benzodiazepine,Urine NEGATIVE (NEGATIVE); Cocaine,Urine NEGATIVE (NEGATIVE); Methadone,Urine NEGATIVE (NEGATIVE); Opiate,Urine NEGATIVE (NEGATIVE); PCP,Urine NEGATIVE (NEGATIVE); THC,Urine POSITIVE (NEGATIVE)
[2020-12-10] MEDS ORDERED: POTASSIUM CHLORIDE 20 mEq IN WATER 100ML 100 ML IV ONE (03:03)
[2020-12-10 03:12] LABS: Amphetamine,Urine POSITIVE (NEGATIVE)
[2020-12-10 04:15] LABS: INFLUENZA A NEGATIVE (NEGATIVE); INFLUENZA B NEGATIVE (NEGATIVE); RESPIRATORY SYNCTIAL VIRUS NEGATIVE (Negative)
[2020-12-10] MEDS: Sodium Chloride 0.9% W/ 20 mEq KCl/LITER 1,000 ML IV SCH ×2 (08:43→18:42)
[2020-12-10] MEDS ORDERED: Ativan 2 MG/1 ML VIAL IV PRN (09:39)
[2020-12-10] MEDS ORDERED: TYLENOL EXTRA STRENGTH 500 MG PO PRN (09:41)
[2020-12-10] MEDS: PROTONIX 40 MG IV IV SCH (09:51)
[2020-12-10] MEDS ORDERED: REMDESIVIR 200 MG in Sodium Chloride 0.9% 250 ML 250 ML IV SCH (10:00)
[2020-12-10] MEDS ORDERED: VENTOLIN COMMON CANISTER IH PRN (13:01)
[2020-12-10] MEDS: Tegretol 200 MG PO SCH (13:52)
[2020-12-11] MEDS: Sodium Chloride 0.9% W/ 20 mEq KCl/LITER 1,000 ML IV SCH ×4 (02:26→23:58)
[2020-12-11 06:44] LABS: Absolute Neutrophil Ct (ANC) 7.01 (1.4-6.9); BASOPHIL % 0.2 % (0.0-0.4); Basophil (Absolute #) 0.02 (0-0.4); Eosinophil (Absolute #) 0.22 (0-0.5); Hematocrit 38.6 % (42-50); Hemoglobin 12.3 gm/dl (12.5-18.0); Lymphocyte (Absolute #) 2.43 (1.0-4.6); Lymphocytes % 21.9 % (24.0-44.0); Mean Cell Volume 94.6 fl (78-100); Mean Corpuscular Hemoglobin 30.1 pg (26-32); Mean Corpuscular Hgb Concent. 31.9 g/dl (32-36); Mean Platelet Volume 10.4 fl (7.5-11.0); Monocyte (Absolute #) 1.42 (0.0-1.3); Monocytes % 12.8 % (0.0-12.0); Neutrophil % 63.1 % (36.0-66.0); Platelet Count 251 K/mm3 (150-450); Red Blood Count 4.08 M/mm3 (4.1-5.6); Red Cell Distribution Width 13.9 % (11.5-14.0); White Blood Count 11.1 K/mm3 (4.0-10.5)
[2020-12-11 07:14] LABS: ALBUMIN 3.4 g/dL (3.5-5.0); ALKALINE PHOSPHATASE 80 U/L (38-126); ANION GAP 6.6 MEQ/L (5-15); BLOOD UREA NITROGEN 10 mg/dL (9-20); CHLORIDE 109 mmol/L (98-107); Calcium 8.8 mg/dL (8.4-10.2); Carbon Dioxide 28 mmol/L (22-30); Creatinine 1 0.79 mg/dL (0.66-1.25); EST GLOMERULAR FILTRATION RATE > 60.0 ML/MIN; Glucose 100 mg/dL (74-106); Potassium 4.5 mmol/L (3.5-5.1); SGOT/AST 41 U/L (17-59); SGPT/ALT 51 U/L (0-50); SODIUM 138 mmol/L (137-145)
[2020-12-11] MEDS: Tegretol 200 MG PO SCH (09:46)
[2020-12-11] MEDS: PROTONIX 40 MG IV IV SCH (09:46)
[2020-12-11] MEDS ORDERED: CARBAMAZEPINE 200 MG PO SCH (10:00)
[2020-12-12 07:58] VITALS: BP 99/57
[2020-12-12] MEDS: Sodium Chloride 0.9% W/ 20 mEq KCl/LITER 1,000 ML IV SCH (08:36)
[2020-12-12] MEDS: PROTONIX 40 MG IV IV SCH (09:53)
[2020-12-12] MEDS: Tegretol 200 MG PO SCH (09:53)
[2020-12-12 10:06] VITALS: PULSE 66; O2SAT 95
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
== END 2020-12-12 11:34 | disposition home or self-care (01) ==
LOC: ED 01:45 → MED SURG 07:33
PROVIDERS: ADMIT Family Medicine; ATTEND Family Medicine
DX: U07.1 COVID-19 (principal); F32.9 Major depressive disorder, single episode, unspecified; T50.902A Poisoning by unspecified drugs, medicaments and biological substances, intentional self-harm, initial encounter; R45.851 Suicidal ideations; F17.210 Nicotine dependence, cigarettes, uncomplicated; Z79.899 Other long term (current) drug therapy
CPT/HCPCS: 0241U; 36000; 36415; 80053; 80307; 81001; 82550; 83735; 84484; 85025; 85379; 87086; 93005; 93268; 94762; 96360; 96365; 96366; 96374; 99285; 99291; G0378; G0480; J2405; J3480; A9270-GY

== ENCOUNTER 2022-03-05 08:48 | Emergency (ER) | payer MEDICARE ==
--- NOTE | 2022-03-05 09:17 | ERPHSYRPT ---
- History of Present Illness Historian: patient Exam Limitations: no limitations Patient Subjective Stated Complaint: Pt states "My belly hurts all over. It has been on and off for the past month." Triage Nursing Assessment: Pt presented alert and oriented X 3, skin wpd. Pt eyelids are heavy and he is constantly yawning. Pt playing on his phone while answering questions. pt ambulates with an upright steady gait, able to speak in clear full sentences. Physician History: 26 yo wm who is an extremely poor historian presents w generalized abdominal pain since 4:00AM. Pain is diffuse/throbbing/9 out of 10. It is accompanied by N/V wo diarrhea/melena/hematochezia/dysuria/hematuria/chest pain. Timing/Duration: other (4:00AM) Activities at Onset: rest Quality: other (Throbbing) Abdominal Pain Onset Location: generalized abdomen Pain Radiation: no radiation Severity of Pain-Max: severe Severity of Pain-Current: severe Modifying Factors: Improves With: nothing Associated Symptoms: nausea, vomiting, No back, No chest pain, No diaphoresis, No diarrhea, No fever/chills, No fatigue, No headache, No heartburn, No loss of appetite, No neck pain, No rash, No shortness of breath, No syncope, No testicular pain, No weakness Previous symptoms: no prior history Allergies/Adverse Reactions: levetiracetam [From [facility]] Adverse Reaction (Severe, Verified 12/10/20 02:05) Vomiting MEAN/aggressive morphine Adverse Reaction (Severe, Verified 12/10/20 02:04) Rash makes pt mean Home Medications: No Reportable Medications [No Reported Medications] 03/05/22 [History] Hx Tetanus, Diphtheria Vaccination/Date Given: Yes Hx Influenza Vaccination/Date Given: No Hx Pneumococcal Vaccination/Date Given: No Immunizations Up to Date: Yes Travel Risk - International Travel Have you traveled outside of the country in past 3 weeks: No - Coronavirus Screening Are you exhibiting any of the following symptoms?: No Close contact with a COVID-19 positive Pt in past 14-21 Days: No - Vaccine Status Have you recieved a Covid-19 vaccination: No - Review of Systems Constitutional: No Symptoms Eyes: No Symptoms Ears, Nose, & Throat: No Symptoms Respiratory: No Symptoms Cardiac: No Symptoms Abdominal/Gastrointestinal: Abdominal Pain, Nausea, Vomiting, No Diarrhea, No Constipation, No Hematemesis, No Hematochezia, No Melena, No Dysphagia, No Appetite Changes Genitourinary Symptoms: No Symptoms Musculoskeletal: No Symptoms Skin: No Symptoms Neurological: No Symptoms Psychological: No Symptoms Endocrine: No Symptoms Hematologic/Lymphatic: No Symptoms Immunological/Allergic: No Symptoms - Past Medical History Pertinent Past Medical History: Yes Neurological History: Seizures ENT History: No Pertinent History Cardiac History: No Pertinent History Respiratory History: No Pertinent History Endocrine Medical History: No Pertinent History Musculoskeletal History: No Pertinent History GI Medical History: No Pertinent History History: No Pertinent History Psycho-Social History: Anxiety, Attention Deficit Disorder, Bipolar, Depression, Other Male Reproductive Disorders: No Pertinent History Other Medical History: MRSA - Left Shoulder Wound. HX Spleen Injury - Past Surgical History Past Surgical History: Yes Neuro Surgical History: No Pertinent History Cardiac: No Pertinent History Respiratory: No Pertinent History Gastrointestinal: No Pertinent History Genitourinary: No Pertinent History Musculoskeletal: No Pertinent History Male Surgical History: No Pertinent History Other Surgical History: TONSILS - Social History Smoking Status: Current every day smoker How long have you smoked: age 11 Exposure to second hand smoke: Yes Drug Use: none Patient Lives Alone: Yes Significant Family History: no pertinent family hx - Nursing Vital Signs Nursing Vital Signs: Initial Vital Signs Temperature 97.1 F 03/05/22 09:00 Pulse Rate 70 03/05/22 09:00 Respiratory Rate 20 03/05/22 09:00 Blood Pressure 141/98 03/05/22 09:00 O2 Sat by Pulse Oximetry 99 03/05/22 09:00 Pain Scale Pain Intensity 0 Hypertensive - Physical Exam General Appearance: no apparent distress Eye Exam: PERRL/EOMI, eyes nml inspection Ears, Nose, Throat Exam: normal ENT inspection, TMs normal, pharynx normal, moist mucous membranes Neck Exam: normal inspection, non-tender, supple, full range of motion, No meningismus, No mass, No Brudzinski, No Kernig's, No carotid bruit Respiratory Exam: normal breath sounds, lungs clear, airway intact Cardiovascular Exam: regular rate/rhythm, normal heart sounds, normal peripheral pulses, capillary refill <2 sec, No murmur Gastrointestinal/Abdomen Exam: soft, normal bowel sounds, tenderness (Mod diffuse TTP wo guarding or rebound) Back Exam: normal inspection, normal range of motion, CVA tenderness, No vertebral tenderness Extremity Exam: normal inspection, normal range of motion Neurologic Exam: alert, oriented x 3, 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, 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, normal mood/affect, nml station & gait, sensation nml Skin Exam: normal color, warm, dry Lymphatic Exam: No adenopathy SpO2 Interpretation: normal SpO2: 99 O2 Delivery: Room Air - Course Nursing assessment & vital signs reviewed: Yes - CT Exams Abdomen/Pelvis CT Interpretation: Tele-radiologist Report (Normal appendix/Nothing acute/Fatty Liver) Ordered Tests: Active Orders 24 hr Category Date Time Status Ye [Catheter-Teague Ye] STAT Care 03/05/22 09:06 Completed ABDOMEN AND PELVIS W/0 CONTRAS [CT] Stat Exams 03/05/22 10:00 Taken AMYLASE Stat Lab 03/05/22 09:35 Completed CBC W DIFF Stat Lab 03/05/22 09:35 Completed CMP Stat Lab 03/05/22 09:35 Completed LIPASE Stat Lab 03/05/22 09:35 Completed UA W/RFX CULTURE Stat Lab 03/05/22 Completed Urine Triage Profile Stat Lab 03/05/22 09:17 Completed Medication Summary Discontinued Medications Generic Name Dose Route Start Last Admin Trade Name Freq PRN Reason Stop Dose Admin Ketorolac Tromethamine 60 mg 03/05/22 09:19 03/05/22 09:23 Ketorolac Tromethamine 30 Mg/Ml Inj IM 03/05/22 09:20 60 mg STAT ONE Administration Ketorolac Tromethamine Confirm 03/05/22 09:22 Ketorolac Tromethamine 30 Mg/Ml Inj Administered 03/05/22 09:23 Dose 30 mg .ROUTE .STK-MED ONE Ketorolac Tromethamine Confirm 03/05/22 09:24 Ketorolac Tromethamine 30 Mg/Ml Inj Administered 03/05/22 09:25 Dose 30 mg .ROUTE .STK-MED ONE Lab/Rad Data: Laboratory Result Diagrams 03/05/22 09:35 03/05/22 09:35 Laboratory Results 03/05/22 03/05/22 03/05/22 Range/Units Unknown 09:35 09:35 WBC 9.6 (4.0-10.5) x10^3/uL RBC 4.66 (4.1-5.6) x10^6/uL Hgb 13.5 (12.5-18.0) g/dL Hct 40.2 L (42-50) % MCV 86.3 (78-100) fL MCH 29.0 (26-32) pg MCHC 33.6 (32-36) g/dL RDW 12.5 (11.5-14.0) % Plt Count 328 (150-450) x10^3/uL MPV 10.5 (7.5-11.0) fL Gran % 53.2 (36.0-66.0) % Immature Gran % (Auto) 0.3 (0.00-0.4) % Nucleat RBC Rel Count 0.0 (0.00-0.1) % Eos # (Auto) 0.34 (0-0.5) x10^3/uL Immature Gran # (Auto) 0.03 (0.00-0.03) x10^3u/L Absolute Lymphs (auto) 3.02 (1.0-4.6) x10^3/uL Absolute Monos (auto) 1.01 (0.0-1.3) x10^3/uL Absolute Nucleated RBC 0.00 (0.00-0.01) x10^3u/L Lymphocytes % 31.6 (24.0-44.0) % Monocytes % 10.6 (0.0-12.0) % Eosinophils % 3.6 (0.00-5.0) % Basophils % 0.7 (0.0-0.4) % Absolute Granulocytes 5.10 (1.4-6.9) x10^3/uL Basophils # 0.07 (0-0.4) x10^3/uL Sodium 138 (137-145) mmol/L Potassium 3.3 L (3.5-5.1) mmol/L Chloride 104 (98-107) mmol/L Carbon Dioxide 28 (22-30) mmol/L Anion Gap 10.2 (5-15) MEQ/L BUN 9 (9-20) mg/dL Creatinine 0.80 (0.66-1.25) mg/dL Estimated GFR > 60.0 ML/MIN Glucose 115 H (74-106) mg/dL Calcium 9.0 (8.4-10.2) mg/dL Total Bilirubin 0.30 (0.2-1.3) mg/dL AST 39 (17-59) U/L ALT 55 H (0-50) U/L Alkaline Phosphatase 124 (38-126) U/L Serum Total Protein 6.6 (6.3-8.2) g/dL Albumin 3.5 (3.5-5.0) g/dL Amylase 64 (30-110) U/L Lipase 184 (23-300) U/L Urinalys Dipstick Clnc MAIN LAB Urine Color YELLOW (YELLOW) Urine Appearance CLEAR (CLEAR) Urine pH 7.0 (5-6) Ur Specific [place] 1.025 (1.005-1.025) POC Urine Protein Conf NEGATIVE (Negative) Urine Ketones NEGATIVE (NEGATIVE) Urine Nitrite NEGATIVE (NEGATIVE) Urine Bilirubin NEGATIVE (NEGATIVE) Urine Urobilinogen 0.2 (0-1) mg/dL Urine Leukocytes NEGATIVE (NEGATIVE) Urine WBC (Auto) NONE (0-5) /HPF Urine RBC (Auto) 0-2 (0-2) /HPF U Epithel Cells (Auto) NONE (FEW) /HPF Urine Bacteria (Auto) NONE SEEN (NEGATIVE) /HPF Urine RBC NEGATIVE (0-5) Lloyd/ul Urine Mucus (Auto) SLIGHT (NEGATIVE) /HPF Ur Culture Indicated? NO Urine Glucose NEGATIVE (NEGATIVE) mg/dL Urine Opiates Level (NEGATIVE) Ur Methadone (NEGATIVE) Urine Barbiturates (NEGATIVE) Ur Phencyclidine (PCP) (NEGATIVE) Urine Amphetamine (NEGATIVE) U Benzodiazepine Level (NEGATIVE) Urine Cocaine (NEGATIVE) Urine Marijuana (THC) (NEGATIVE) 03/05/22 Range/Units 09:17 WBC (4.0-10.5) x10^3/uL RBC (4.1-5.6) x10^6/uL Hgb (12.5-18.0) g/dL Hct (42-50) % MCV (78-100) fL MCH (26-32) pg MCHC (32-36) g/dL RDW (11.5-14.0) % Plt Count (150-450) x10^3/uL MPV (7.5-11.0) fL Gran % (36.0-66.0) % Immature Gran % (Auto) (0.00-0.4) % Nucleat RBC Rel Count (0.00-0.1) % Eos # (Auto) (0-0.5) x10^3/uL Immature Gran # (Auto) (0.00-0.03) x10^3u/L Absolute Lymphs (auto) (1.0-4.6) x10^3/uL Absolute Monos (auto) (0.0-1.3) x10^3/uL Absolute Nucleated RBC (0.00-0.01) x10^3u/L Lymphocytes % (24.0-44.0) % Monocytes % (0.0-12.0) % Eosinophils % (0.00-5.0) % Basophils % (0.0-0.4) % Absolute Granulocytes (1.4-6.9) x10^3/uL Basophils # (0-0.4) x10^3/uL Sodium (137-145) mmol/L Potassium (3.5-5.1) mmol/L Chloride (98-107) mmol/L Carbon Dioxide (22-30) mmol/L Anion Gap (5-15) MEQ/L BUN (9-20) mg/dL Creatinine (0.66-1.25) mg/dL Estimated GFR ML/MIN Glucose (74-106) mg/dL Calcium (8.4-10.2) mg/dL Total Bilirubin (0.2-1.3) mg/dL AST (17-59) U/L ALT (0-50) U/L Alkaline Phosphatase (38-126) U/L Serum Total Protein (6.3-8.2) g/dL Albumin (3.5-5.0) g/dL Amylase (30-110) U/L Lipase (23-300) U/L Urinalys Dipstick Clnc Urine Color (YELLOW) Urine Appearance (CLEAR) Urine pH (5-6) Ur Specific [place] (1.005-1.025) POC Urine Protein Conf (Negative) Urine Ketones (NEGATIVE) Urine Nitrite (NEGATIVE) Urine Bilirubin (NEGATIVE) Urine Urobilinogen (0-1) mg/dL Urine Leukocytes (NEGATIVE) Urine WBC (Auto) (0-5) /HPF Urine RBC (Auto) (0-2) /HPF U Epithel Cells (Auto) (FEW) /HPF Urine Bacteria (Auto) (NEGATIVE) /HPF Urine RBC (0-5) Lloyd/ul Urine Mucus (Auto) (NEGATIVE) /HPF Ur Culture Indicated? Urine Glucose (NEGATIVE) mg/dL Urine Opiates Level NEGATIVE (NEGATIVE) Ur Methadone NEGATIVE (NEGATIVE) Urine Barbiturates NEGATIVE (NEGATIVE) Ur Phencyclidine (PCP) NEGATIVE (NEGATIVE) Urine Amphetamine POSITIVE (NEGATIVE) U Benzodiazepine Level NEGATIVE (NEGATIVE) Urine Cocaine NEGATIVE (NEGATIVE) Urine Marijuana (THC) NEGATIVE (NEGATIVE) - Progress Progress: improved Progress Note: 03/05/22 12:46 60mg IM Toradol w improvement Counseled pt/family regarding: lab results, diagnosis, need for follow-up, rad results - Departure Departure Disposition: Home Clinical Impression: Abdominal pain Condition: Stable Critical Care Time: No Referrals: CHELSEA VALE MD [Primary Care Provider] - Follow up/PCP as directed Instructions: Acute Abdomen (Belly Pain), Adult (DC) Additional Instructions: Return to ER for increasing pain or temperature greater than 100.5
[2022-03-05] MEDS ORDERED: TORAdol 30 mg Injection IM ONE (09:19)
[2022-03-05] MEDS ORDERED: TORAdol 30 mg Injection ONE ×2 (09:22→09:24)
[2022-03-05 09:43] LABS: Basophil (Absolute #) 0.07 x10^3/uL (0-0.4); Eosinophil % 3.6 % (0.00-5.0); Eosinophil (Absolute #) 0.34 x10^3/uL (0-0.5); Hematocrit 40.2 % (42-50); Hemoglobin 13.5 g/dL (12.5-18.0); Lymphocyte (Absolute #) 3.02 x10^3/uL (1.0-4.6); Lymphocytes % 31.6 % (24.0-44.0); Mean Cell Volume 86.3 fL (78-100); Mean Corpuscular Hgb Concent. 33.6 g/dL (32-36); Mean Platelet Volume 10.5 fL (7.5-11.0); Monocyte (Absolute #) 1.01 x10^3/uL (0.0-1.3); Monocytes % 10.6 % (0.0-12.0); Neutrophil % 53.2 % (36.0-66.0); Platelet Count 328 x10^3/uL (150-450); Red Blood Count 4.66 x10^6/uL (4.1-5.6); Red Cell Distribution Width 12.5 % (11.5-14.0); White Blood Count 9.6 x10^3/uL (4.0-10.5)
[2022-03-05 09:51] LABS: ALBUMIN 3.5 g/dL (3.5-5.0); ALKALINE PHOSPHATASE 124 U/L (38-126); AMYLASE 64 U/L (30-110); ANION GAP 10.2 MEQ/L (5-15); BLOOD UREA NITROGEN 9 mg/dL (9-20); CHLORIDE 104 mmol/L (98-107); Carbon Dioxide 28 mmol/L (22-30); EST GLOMERULAR FILTRATION RATE > 60.0 ML/MIN; Glucose 115 mg/dL (74-106); LIPASE 184 U/L (23-300); Potassium 3.3 mmol/L (3.5-5.1); SGOT/AST 39 U/L (17-59); SGPT/ALT 55 U/L (0-50); SODIUM 138 mmol/L (137-145); Total Protein 6.6 g/dL (6.3-8.2)
[2022-03-05 11:34] VITALS: BP 123/71
[2022-03-05 12:36] LABS: Mucus SLIGHT /HPF (NEGATIVE); RBC 0-2 /HPF (0-2)
[2022-03-05 12:38] LABS: Barbiturate,Urine NEGATIVE (NEGATIVE); Benzodiazepine,Urine NEGATIVE (NEGATIVE); Cocaine,Urine NEGATIVE (NEGATIVE); Methadone,Urine NEGATIVE (NEGATIVE); Opiate,Urine NEGATIVE (NEGATIVE); PCP,Urine NEGATIVE (NEGATIVE); THC,Urine NEGATIVE (NEGATIVE)
[2022-03-05 12:40] LABS: Appearance CLEAR (CLEAR); Bacteria NONE SEEN /HPF (NEGATIVE); Bilirubin NEGATIVE (NEGATIVE); Glucose NEGATIVE (NEGATIVE); Ketones NEGATIVE (NEGATIVE); Nitrite NEGATIVE (NEGATIVE); Protein,Urine Dip NEGATIVE (Negative); RBC NEGATIVE Ery/ul (0-5); Specific Gravity 1.025 (1.005-1.025); Urine Cultured Indicated? NO; Urobilinogen 0.2 mg/dL (0-1)
[2022-03-05 12:47] VITALS: O2SAT 99
[2022-03-05 12:48] VITALS: PULSE 51
[2022-03-05 12:58] LABS: Dipstick done @ ? MAIN LAB
[2022-03-05 13:21] LABS: Amphetamine,Urine POSITIVE (NEGATIVE)
--- NOTE | 2022-03-05 20:06 | XRAY ---
Indication: Abdomen pain. Multiple contiguous axial images obtained through the abdomen and pelvis without contrast. Comparison: December 25, 2015 Lung bases demonstrates moderate bilateral dependent atelectasis. Heart not enlarged. Incidental right perihilar and right lower lobe calcified granulomas not previously imaged. Noncontrasted stomach and bowel loops appear nonobstructed with normal appendix. Mild diffuse scattered colonic fecal debris throughout. No free fluid/air. Stable nonobstructing right renal punctate calculus. Liver is enlarged measuring 20 cm. Remaining liver, gallbladder, pancreas, spleen, adrenal glands, kidneys, ureters, bladder, and aorta are unremarkable for noncontrast exam. Osseous structures intact. No ventral or inguinal hernias. Impression: 1. Mild diffuse fecal stasis. 2. Incidental nonobstructing right renal micro-calculus, hepatomegaly, and old granulomatous disease. 3. Remaining CT abdomen/pelvis without contrast exam is negative. Comment: Preliminary interpretation made by [facility]. No critical discrepancy.
== END 2022-03-05 12:55 | disposition home or self-care (01) ==
LOC: ED 08:48
DX: R10.84 Generalized abdominal pain (principal); R11.2 Nausea with vomiting, unspecified; Z72.0 Tobacco use; Z28.310 Unvaccinated for COVID-19
CPT/HCPCS: 36415; 51702; 74176; 80053; 80307; 81015; 82150; 83690; 85025; 96372; 99284; J1885

== ENCOUNTER 2023-05-13 14:49 | Emergency (ER) | payer MEDICARE ==
[2023-05-13 15:38] VITALS: TEMP 99.4
[2023-05-13] MEDS ORDERED: Sodium Chloride 0.9% 1000 ML 1,000 ML IV STA ×2 (16:03→20:05)
[2023-05-13] MEDS ORDERED: Zofran 4 MG/2 ML VIAL IV ONE (16:03)
[2023-05-13] MEDS ORDERED: TORAdol 30 mg Injection IV ONE (16:04)
[2023-05-13] MEDS ORDERED: TORAdol 30 mg Injection ONE (16:06)
[2023-05-13] MEDS ORDERED: Zofran 4 MG/2 ML VIAL ONE (16:06)
[2023-05-13] MEDS ORDERED: Sodium Chloride 0.9% 1000 ML 1,000 ML ONE ×2 (16:06→20:06)
[2023-05-13 16:10] LABS: Absolute Neutrophil Ct (ANC) 14.68 x10^3/uL (1.4-6.9); BASOPHIL % 0.2 % (0.0-0.4); Basophil (Absolute #) 0.04 x10^3/uL (0-0.4); Eosinophil % 0.6 % (0.00-5.0); Hematocrit 47.6 % (42-50); Hemoglobin 16.1 g/dL (12.5-18.0); IMMATURE GRAN # 0.06 x10^3u/L (0.00-0.03); IMMATURE GRAN % 0.3 % (0.00-0.4); Lymphocyte (Absolute #) 1.45 x10^3/uL (1.0-4.6); Lymphocytes % 8.4 % (24.0-44.0); Mean Cell Volume 87.8 fL (78-100); Mean Corpuscular Hemoglobin 29.7 pg (26-32); Mean Corpuscular Hgb Concent. 33.8 g/dL (32-36); Mean Platelet Volume 11.1 fL (7.5-11.0); Monocyte (Absolute #) 0.86 x10^3/uL (0.0-1.3); Neutrophil % 85.5 % (36.0-66.0); Platelet Count 318 x10^3/uL (150-450); Red Blood Count 5.42 x10^6/uL (4.1-5.6); Red Cell Distribution Width 12.2 % (11.5-14.0); White Blood Count 17.2 x10^3/uL (4.0-10.5)
[2023-05-13 16:17] LABS: ALBUMIN 4.5 g/dL (3.5-5.0); ALKALINE PHOSPHATASE 129 U/L (38-126); AMYLASE 56 U/L (30-110); ANION GAP 15.3 MEQ/L (5-15); BLOOD UREA NITROGEN 16 mg/dL (9-20); CHLORIDE 103 mmol/L (98-107); Calcium 9.1 mg/dL (8.4-10.2); Carbon Dioxide 24 mmol/L (22-30); Creatinine 1 0.86 mg/dL (0.66-1.25); EST GLOMERULAR FILTRATION RATE > 60.0 ML/MIN; Glucose 113 mg/dL (74-106); LIPASE 80 U/L (23-300); Potassium 3.8 mmol/L (3.5-5.1); SGOT/AST 53 U/L (17-59); SGPT/ALT 89 U/L (0-50); SODIUM 139 mmol/L (137-145); Total Protein 7.8 g/dL (6.3-8.2)
[2023-05-13] MEDS ORDERED: Hydromorphone 1 mg/ml Injection IV ONE (16:40)
[2023-05-13] MEDS ORDERED: Hydromorphone 1 mg/ml Injection ONE (16:43)
--- NOTE | 2023-05-13 16:43 | ERPHSYRPT ---
- History of Present Illness Time Seen by Provider: 05/13/23 15:25 Historian: patient, family Exam Limitations: no limitations Patient Subjective Stated Complaint: Abdominal pain Triage Nursing Assessment: Patient ambulated back to ED and transferred self to bed. Patient A+O X 3. Patient's skin pink, warm and dry. Patient complains of lower abdominal pain 9/10, N/V and diarrhea. Abdomen soft and round with BS X 4. Physician History: 27 years old male with history of seizures presented to the ER with chief complaint of periumbilical abdominal pain sudden onset around 4 AM with associated multiple episodes of nonprojectile, nonbilious vomiting without hematemesis and loose stool. Denies any hematochezia. Reports moderate to severe sharp pain with no aggravating or relieving factors. No associated fever or chills reported. Denies any sick contact. No abdominal surgeries in the past. Allergies/Adverse Reactions: levetiracetam [From [facility]] Adverse Reaction (Severe, Verified 05/13/23 15:27) Vomiting MEAN/aggressive morphine Adverse Reaction (Severe, Verified 05/13/23 15:27) Rash makes pt mean Hx Tetanus, Diphtheria Vaccination/Date Given: Yes Hx Influenza Vaccination/Date Given: No Hx Pneumococcal Vaccination/Date Given: No Immunizations Up to Date: Yes Travel Risk - International Travel Have you traveled outside of the country in past 3 weeks: No - Coronavirus Screening Are you exhibiting any of the following symptoms?: No Close contact with a COVID-19 positive Pt in past 14-21 Days: No - Vaccine Status Have you recieved a Covid-19 vaccination: No - Review of Systems Constitutional: No Symptoms Eyes: No Symptoms Ears, Nose, & Throat: No Symptoms Respiratory: No Symptoms Cardiac: No Symptoms Abdominal/Gastrointestinal: Abdominal Pain, Nausea, Vomiting, Diarrhea Genitourinary Symptoms: No Symptoms Musculoskeletal: No Symptoms Neurological: No Symptoms Endocrine: No Symptoms Hematologic/Lymphatic: No Symptoms - Past Medical History Pertinent Past Medical History: Yes Neurological History: Seizures ENT History: No Pertinent History Cardiac History: No Pertinent History Respiratory History: No Pertinent History Endocrine Medical History: No Pertinent History Musculoskeletal History: No Pertinent History GI Medical History: No Pertinent History History: No Pertinent History Psycho-Social History: Anxiety, Attention Deficit Disorder, Bipolar, Depression, Other Male Reproductive Disorders: No Pertinent History Other Medical History: MRSA - Left Shoulder Wound. HX Spleen Injury - Past Surgical History Past Surgical History: Yes Neuro Surgical History: No Pertinent History Cardiac: No Pertinent History Respiratory: No Pertinent History Gastrointestinal: No Pertinent History Genitourinary: No Pertinent History Musculoskeletal: No Pertinent History Male Surgical History: No Pertinent History Other Surgical History: TONSILS - Social History Smoking Status: Current every day smoker How long have you smoked: age 11 Exposure to second hand smoke: Yes Drug Use: none Patient Lives Alone: Yes Significant Family History: no pertinent family hx - Nursing Vital Signs Nursing Vital Signs: Initial Vital Signs Temperature 99.4 F 05/13/23 15:28 Pulse Rate 120 H 05/13/23 15:28 Respiratory Rate 18 05/13/23 15:28 Blood Pressure 115/89 05/13/23 15:28 O2 Sat by Pulse Oximetry 95 05/13/23 15:28 Pain Scale Pain Intensity 4 - Physical Exam General Appearance: no apparent distress, alert Eye Exam: PERRL/EOMI Ears, Nose, Throat Exam: normal ENT inspection, TMs normal, pharynx normal Neck Exam: normal inspection, non-tender, supple, full range of motion Respiratory Exam: normal breath sounds, lungs clear Cardiovascular Exam: normal heart sounds, tachycardia Gastrointestinal/Abdomen Exam: soft, normal bowel sounds, tenderness (Generalized) Back Exam: normal inspection Extremity Exam: normal inspection, normal range of motion Neurologic Exam: alert, oriented x 3, 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, 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 Skin Exam: normal color SpO2 Interpretation: normal SpO2: 94 O2 Delivery: Room Air Ordered Tests: Active Orders 24 hr Category Date Time Status IV Insertion STAT Care 05/13/23 16:03 Active NPO (ED) STAT Care 05/13/23 16:03 Active ABDOMEN AND PELVIS W CONTRAST [CT] Stat Exams 05/13/23 16:03 Taken AMYLASE Stat Lab 05/13/23 15:00 Completed CBC W DIFF Stat Lab 05/13/23 15:00 Completed CMP Stat Lab 05/13/23 15:00 Completed LIPASE Stat Lab 05/13/23 15:00 Completed UA W/RFX UR CULTURE Stat Lab 05/13/23 16:30 Completed Medication Summary Generic Name Dose Route Start Last Admin Trade Name Freq PRN Reason Stop Dose Admin Sodium Chloride 1,000 mls @ 999 mls/hr 05/13/23 20:05 05/13/23 20:08 Sodium Chloride 0.9% 1000 Ml IV 05/13/23 21:05 999 mls/hr .Q1H1M STA Administration Discontinued Medications Generic Name Dose Route Start Last Admin Trade Name Meghna PRN Reason Stop Dose Admin Hydromorphone HCl 0.5 mg 05/13/23 16:40 05/13/23 16:44 Hydromorphone 1 Mg/1ml Inj IV 05/13/23 16:41 0.5 mg STAT ONE Administration Hydromorphone HCl Confirm 05/13/23 16:43 Hydromorphone 1 Mg/1ml Inj Administered 05/13/23 16:44 Dose 1 mg .ROUTE .STK-MED ONE Sodium Chloride 1,000 mls @ 999 mls/hr 05/13/23 16:03 05/13/23 17:10 Sodium Chloride 0.9% 1000 Ml IV 05/13/23 17:03 Infused .Q1H1M STA Infusion Sodium Chloride Confirm 05/13/23 16:06 Sodium Chloride 0.9% 1000 Ml Administered 05/13/23 16:07 Dose 1,000 mls @ ud .ROUTE .STK-MED ONE Sodium Chloride Confirm 05/13/23 20:06 Sodium Chloride 0.9% 1000 Ml Administered 05/13/23 20:07 Dose 1,000 mls @ ud .ROUTE .STK-MED ONE Ketorolac Tromethamine 30 mg 05/13/23 16:04 05/13/23 16:09 Ketorolac Tromethamine 30 Mg/Ml Inj IV 05/13/23 16:05 30 mg STAT ONE Administration Ketorolac Tromethamine Confirm 05/13/23 16:06 Ketorolac Tromethamine 30 Mg/Ml Inj Administered 05/13/23 16:07 Dose 30 mg .ROUTE .STK-MED ONE Ondansetron HCl 4 mg 05/13/23 16:03 05/13/23 16:09 Ondansetron Hcl 4 Mg/2 Ml Vial IV 05/13/23 16:04 4 mg STAT ONE Administration Ondansetron HCl Confirm 05/13/23 16:06 Ondansetron Hcl 4 Mg/2 Ml Vial Administered 05/13/23 16:07 Dose 4 mg .ROUTE .STK-MED ONE Lab/Rad Data: Laboratory Result Diagrams 05/13/23 15:00 05/13/23 15:00 Laboratory Results 05/13/23 05/13/23 05/13/23 Range/Units 16:30 15:00 15:00 WBC 17.2 H (4.0-10.5) x10^3/uL RBC 5.42 (4.1-5.6) x10^6/uL Hgb 16.1 (12.5-18.0) g/dL Hct 47.6 (42-50) % MCV 87.8 (78-100) fL MCH 29.7 (26-32) pg MCHC 33.8 (32-36) g/dL RDW 12.2 (11.5-14.0) % Plt Count 318 (150-450) x10^3/uL MPV 11.1 H (7.5-11.0) fL Gran % 85.5 H (36.0-66.0) % Immature Gran % (Auto) 0.3 (0.00-0.4) % Nucleat RBC Rel Count 0.0 (0.00-0.1) % Eos # (Auto) 0.10 (0-0.5) x10^3/uL Immature Gran # (Auto) 0.06 H (0.00-0.03) x10^3u/L Absolute Lymphs (auto) 1.45 (1.0-4.6) x10^3/uL Absolute Monos (auto) 0.86 (0.0-1.3) x10^3/uL Absolute Nucleated RBC 0.00 (0.00-0.01) x10^3u/L Lymphocytes % 8.4 L (24.0-44.0) % Monocytes % 5.0 (0.0-12.0) % Eosinophils % 0.6 (0.00-5.0) % Basophils % 0.2 (0.0-0.4) % Absolute Granulocytes 14.68 H (1.4-6.9) x10^3/uL Basophils # 0.04 (0-0.4) x10^3/uL Sodium 139 (137-145) mmol/L Potassium 3.8 (3.5-5.1) mmol/L Chloride 103 (98-107) mmol/L Carbon Dioxide 24 (22-30) mmol/L Anion Gap 15.3 H (5-15) MEQ/L BUN 16 (9-20) mg/dL Creatinine 0.86 (0.66-1.25) mg/dL Estimated GFR > 60.0 ML/MIN Glucose 113 H (74-106) mg/dL Calcium 9.1 (8.4-10.2) mg/dL Total Bilirubin 0.70 (0.2-1.3) mg/dL AST 53 (17-59) U/L ALT 89 H (0-50) U/L Alkaline Phosphatase 129 H (38-126) U/L Serum Total Protein 7.8 (6.3-8.2) g/dL Albumin 4.5 (3.5-5.0) g/dL Amylase 56 (30-110) U/L Lipase 80 (23-300) U/L Urine Color Yellow (Yellow) Urine Appearance Clear (Clear) Urine pH 5.5 (4.6-8.0) Ur Specific [place] >=1.030 A (1.005-1.030) Urine Protein Trace A (Negative) Urine Glucose (UA) Negative (Negative) mg/dL Urine Ketones Trace A (Negative) Urine Blood Negative (Negative) Urine Nitrite Negative (Negative) Urine Bilirubin Negative (Negative) Urine Urobilinogen 1.0 A (0.2) mg/dL Ur Leukocyte Esterase Negative (Negative) U Hyaline Cast (Auto) NONE SEEN (0-2) /LPF Urine Microscopic RBC 0-2 (0-5) /HPF Urine Microscopic WBC 0-2 (0-5) /HPF Ur Epithelial Cells None Seen (None Seen) /HPF Urine Bacteria None Seen (None Seen) /HPF Urine Culture Reflexed NO (NO) - Progress Progress: improved, re-examined Progress Note: 05/13/23 16:42 27 years old male with history of seizures presented to the ER with chief complaint of periumbilical abdominal pain sudden onset around 4 AM with associated multiple episodes of nonprojectile, nonbilious vomiting without hematemesis and loose stool. Denies any hematochezia. Reports moderate to severe sharp pain with no aggravating or relieving factors. No associated fever or chills reported. Denies any sick contact. No abdominal surgeries in the past. Patient has moderate diffuse tenderness on the lower abdomen. We will do symptomatic treatment for pain and nausea and will obtain acute abdomen work-up including CT abdomen pelvis. 05/13/23 20:27 He was given fluids and symptomatic treatment, on reevaluation patient abdominal pain is almost completely resolved. His tachycardia also improved. Abdominal exam is soft nontender on repeated evaluation with no peritoneal signs. Has a white count of 17 which is probably reactive, fairly unremarkable chemistries and no UTI. I have obtained CT abdomen pelvis with contrast which is negative for any acute abdominal pelvic findings. I believe patient has gastroenteritis, will give Zofran to go home and recommended supportive care. Do not think patient needs any other work-up and is stable for discharge. Counseled pt/family regarding: lab results, diagnosis, need for follow-up, rad results, smoking cessation Medical Desision Making - Independent Historian Additional History obtained from: Mother (Grandma) - Diagnostic Testing Diagnostic test were ordered, analyzed, and reviewed by me: Yes Radiological Interpretation: Reviewed by me, Teleradiologist Report - Risk of complications The pt has a mod risk of morbidity or mortality based on: Need for prescription drug management - Departure Departure Disposition: Home Clinical Impression: Acute gastroenteritis Condition: Stable Critical Care Time: No Referrals: CHELSEA VALE MD [Primary Care Provider] - Follow up with PCP 2 days Instructions: Severe Abdominal Pain, Adult (DC) Additional Instructions: Drink plenty of fluids to keep yourself well-hydrated. Take Tylenol as needed for pain. Take Zofran as needed for nausea and vomiting. Follow-up with primary care for reevaluation and 1 to 2 days. Return to ER for intractable abdominal pain/vomiting/diarrhea etc. Prescriptions: Ondansetron ODT 4 MG [Zofran Odt 4 mg] 1 ea PO QIDPRN PRN #7 tablet PRN Reason: n/v
[2023-05-13 16:50] LABS: ADD URINE CULTURE? NO (NO); Appearance Clear (Clear); Bacteria None Seen /HPF (None Seen); Bilirubin Negative (Negative); Blood Negative (Negative); Epithelial Cells None Seen /HPF (None Seen); Glucose, Urine Negative (Negative); Hyaline Casts NONE SEEN /LPF (0-2); Ketones Trace (Negative); Leukocyte Esterase Negative (Negative); Nitrite Negative (Negative); Ph 5.5 (4.6-8.0); Protein,Urine Dip Trace (Negative); RBC 0-2 /HPF (0-5); Specific Gravity >=1.030 (1.005-1.030); WBC 0-2 /HPF (0-5)
[2023-05-13 20:54] VITALS: BP 105/74; PULSE 80; RESP 16; O2SAT 96
--- NOTE | 2023-05-15 16:27 | XRAY ---
CLINICAL HISTORY:Vomiting and diarrhea; COMPARISON:None. TECHNIQUES:CT scan of the abdomen and pelvis was performed with IV contrast. Coronal and sagittal reconstructive images were also obtained; FINDINGS: Abdomen; The liver is enlarged measuring 19.4 cm craniocaudally with diffuse fatty liver infiltration. No focal parenchymal abnormality. The portal vein, intrahepatic biliary radicals, and the bile ducts are normal; The spleen, pancreas, and adrenal glands are unremarkable; The kidneys are normal in size and shape. No cysts, mass, calculi, or hydronephrosis; The gallbladder is distended and shows no definite stones. There is no evidence of wall thickening/ pericholecystic collection; The ascending colon, the transverse colon, and the descending colon visualized small bowel loops are unremarkable; There is no evidence of significant enlargement of the mesenteric or retroperitoneal lymph nodes; Pelvis; The urinary bladder is unremarkable; The prostate gland is normal; The pelvic vasculature is unremarkable; No evidence of pelvic lymphadenopathy; The osseous structures in the pelvis, lower rib cage, and lumbar spine show no abnormality; There is 0.6 mm calcified nodule in the right lung base; Partially visualized calcified right hilar lymph nodes; IMPRESSION: 1. Hepatogemaly with diffuse fatty infiltration; 2. No other remarkable findings in the abdomen; 3. Calcified pulmonary nodule, right lung base; Electronically Signed by: Giana Zaman MD. (05/13/2023 17:43:00 [employer])
== END 2023-05-13 20:52 | disposition home or self-care (01) ==
LOC: ED 14:49
DX: K52.9 Noninfective gastroenteritis and colitis, unspecified (principal); R10.33 Periumbilical pain; R11.2 Nausea with vomiting, unspecified; Z28.310 Unvaccinated for COVID-19; Z72.0 Tobacco use
CPT/HCPCS: 36000; 36415; 74177; 80053; 81001; 82150; 83690; 85025; 96374; 96375; 99284; J1170; J1885; J2405

== ENCOUNTER 2024-02-14 14:13 | Emergency (ER) | payer MEDICARE ==
[2024-02-14 14:35] VITALS: RESP 18; TEMP 98
[2024-02-14] MEDS ORDERED: Norflex 60 MG/2 ML ONE (14:48)
[2024-02-14] MEDS ORDERED: TORAdol 30 mg Injection ONE (14:48)
[2024-02-14] MEDS: Norflex 60 MG/2 ML IM ONE (14:49)
[2024-02-14] MEDS: TORAdol 30 mg Injection IM ONE (14:49)
--- NOTE | 2024-02-14 15:01 | XRAY ---
Indication: Pain following lifting. Comparison: None 3 view left shoulder obtained. No bony, articular, or soft tissue abnormalities.
--- NOTE | 2024-02-14 15:30 | ERPHSYRPT ---
- History of Present Illness Time Seen by Provider: 02/14/24 14:22 Source: patient Exam Limitations: no limitations Patient Subjective Stated Complaint: pt states neck pain and shoulder pain for the past 2.5 weeks Triage Nursing Assessment: pt ambulated into the er; pt is axo x4; c/o neck pain; pt states 9/10 to left neck/ shoulder; good ROM to LUE; strong left radial pulses; good cap refill to LUE; tenderness to left side of neck and shoulder; no respiratory distress present; skin PDW; vitals wnl Physician History: 28-year-old [id number] male presented in the ER with complains of left shoulder pain and left lateral neck muscle pain for the last 2-1/2 weeks after he was lifting heavy object. Patient reports he felt some popping/snapping sensation in the shoulder before pain started. Patient reports painful movements in all direction with no numbness or weakness of left upper extremity. Also has some pain with movements in the neck on the left lateral side going to left shoulder. Denies any headache. No chest pain palpitations or shortness of breath reported. Allergies/Adverse Reactions: levetiracetam [From [facility]] Adverse Reaction (Severe, Verified 02/14/24 14:22) Vomiting MEAN/aggressive morphine Adverse Reaction (Severe, Verified 02/14/24 14:22) Rash makes pt mean Hx Tetanus, Diphtheria Vaccination/Date Given: Yes Hx Influenza Vaccination/Date Given: No Hx Pneumococcal Vaccination/Date Given: No Immunizations Up to Date: No Travel Risk - International Travel Have you traveled outside of the country in past 3 weeks: No - Emerging Infectious Disease Are you exhibiting symptoms associated with any current EIDs: No - Review of Systems Constitutional: No Symptoms Eyes: No Symptoms Ears, Nose, & Throat: No Symptoms Respiratory: No Symptoms Cardiac: No Symptoms Abdominal/Gastrointestinal: No Symptoms Musculoskeletal: Neck Pain, Myalgias Skin: No Symptoms Neurological: No Symptoms Endocrine: No Symptoms Hematologic/Lymphatic: No Symptoms - Past Medical History Pertinent Past Medical History: Yes Neurological History: Seizures ENT History: No Pertinent History Cardiac History: No Pertinent History Respiratory History: No Pertinent History Endocrine Medical History: No Pertinent History Musculoskeletal History: No Pertinent History GI Medical History: No Pertinent History History: No Pertinent History Psycho-Social History: Anxiety, Attention Deficit Disorder, Bipolar, Depression, Other Male Reproductive Disorders: No Pertinent History Other Medical History: MRSA - Left Shoulder Wound. HX Spleen Injury - Past Surgical History Past Surgical History: Yes Neuro Surgical History: No Pertinent History Cardiac: No Pertinent History Respiratory: No Pertinent History Gastrointestinal: No Pertinent History Genitourinary: No Pertinent History Musculoskeletal: No Pertinent History Male Surgical History: No Pertinent History Other Surgical History: TONSILS Significant Family History: no pertinent family hx - Social History Smoking Status: Current every day smoker How long have you smoked: age 11 Exposure to second hand smoke: Yes Drug Use: marijuana Patient Lives Alone: Yes - Nursing Vital Signs Nursing Vital Signs: Initial Vital Signs Temperature 98 F 02/14/24 14:22 Pulse Rate 102 H 02/14/24 14:22 Respiratory Rate 18 02/14/24 14:22 Blood Pressure 128/76 02/14/24 14:22 O2 Sat by Pulse Oximetry 97 02/14/24 14:22 Pain Scale Pain Intensity 8 - Physical Exam General Appearance: no apparent distress, alert Eyes, Ears, Nose, Throat Exam: normal ENT inspection Neck Exam: normal inspection, supple, full range of motion, tenderness lateral (Left trapezius ), No tenderness midline Cardiovascular/Respiratory Exam: chest non-tender, normal breath sounds, regular rate/rhythm Shoulder Exam: normal inspection, no evidence of injury, normal ROM, soft tissue tenderness Elbow/Forearm Exam: normal inspection, non-tender, no evidence of injury, normal ROM Wrist Exam: normal inspection, non-tender, no evidence of injury, normal ROM Neuro/Tendon Exam: normal sensation, normal motor functions Mental Status Exam: alert, oriented x 3, cooperative Skin Exam: normal color SpO2 Interpretation: normal SpO2: 97 O2 Delivery: Room Air Ordered Tests: Active Orders 24 hr Category Date Time Status SHOULDER Stat Exams 02/14/24 14:35 Completed Medication Summary Discontinued Medications Generic Name Dose Route Start Last Admin Trade Name Freq PRN Reason Stop Dose Admin Ketorolac Tromethamine 30 mg 02/14/24 14:34 02/14/24 14:49 Ketorolac Tromethamine 30 Mg/Ml Inj IM 02/14/24 14:35 30 mg STAT ONE Administration Ketorolac Tromethamine Confirm 02/14/24 14:48 Ketorolac Tromethamine 30 Mg/Ml Inj Administered 02/14/24 14:49 Dose 30 mg .ROUTE .STK-MED ONE Orphenadrine Citrate 60 mg 02/14/24 14:35 02/14/24 14:49 Orphenadrine Citrate 60 Mg/2 Ml Vial IM 02/14/24 14:36 60 mg STAT ONE Administration Orphenadrine Citrate Confirm 02/14/24 14:48 Orphenadrine Citrate 60 Mg/2 Ml Vial Administered 02/14/24 14:49 Dose 60 mg .ROUTE .STK-MED ONE - Progress Progress: improved Progress Note: 02/14/24 15:27 28-year-old is evaluated for left shoulder pain after lifting heavy objects. Also has some pain in the left lateral neck with movements. Has no midline cervical spine tenderness. Intact range of motion of the left shoulder. Has soft tissue/mild bony tenderness diffusely. Has negative neuro exam in the left upper extremity. Given Toradol and Norflex, on reevaluation his pain is better with improved mobility. I believe patient has cervical spasm and some sprain/strain of shoulder, will continue with NSAIDs and muscle relaxant to go home and outpatient follow-up with orthopedics recommended. Discussed signs symptoms of worsening needing return to ER which he seems understanding. Counseled pt/family regarding: diagnosis, need for follow-up, rad results Medical Desision Making - Diagnostic Testing Diagnostic test were ordered, analyzed, and reviewed by me: Yes Radiological Interpretation: Reviewed by me - Risk of complications The pt has a mod risk of morbidity or mortality based on: Need for prescription drug management - Departure Departure Disposition: Home Clinical Impression: Left shoulder strain, Cervical muscle strain Condition: Stable Critical Care Time: No Referrals: CHELSEA VALE MD [Primary Care Provider] - Follow up with PCP 1 day KEVIN STEWART MD [ACTIVE STAFF] - Follow up with PCP 1 day (Call tomorrow for appointment for reevaluation) Instructions: Cervical Muscle Strain (DC) Additional Instructions: Intermittent ice application. Tylenol/ibuprofen as needed. Avoid exertional activities. Follow-up with primary care/orthopedics for reevaluation. Return to ER for intractable pain, numbness weakness of left upper extremity, difficulty movements etc. Prescriptions: Ibuprofen 600 mg PO Q6HPRN PRN 10 Days #20 tablet PRN Reason: Pain Cyclobenzaprine HCl 10 mg [Flexeril 10 MG] 10 mg PO TID #20 tablet
[2024-02-14 15:31] VITALS: O2SAT 97
[2024-02-14 15:38] VITALS: BP 124/68; PULSE 68
== END 2024-02-14 15:37 | disposition home or self-care (01) ==
LOC: ED 14:13
DX: S46.912A Strain of unspecified muscle, fascia and tendon at shoulder and upper arm level, left arm, initial encounter (principal); S16.1XXA Strain of muscle, fascia and tendon at neck level, initial encounter; X50.0XXA Overexertion from strenuous movement or load, initial encounter; Z72.0 Tobacco use
CPT/HCPCS: 73030; 96372; 99283; J1885; J2360

== ENCOUNTER 2024-02-19 22:18 | Emergency (ER) | payer MEDICARE ==
[2024-02-19 23:32] VITALS: RESP 18; TEMP 98.3
[2024-02-19] MEDS ORDERED: TORAdol 30 mg Injection ONE (23:45)
[2024-02-19] MEDS ORDERED: DECADRON 10MG INJ. ONE (23:45)
--- NOTE | 2024-02-19 23:47 | ERPHSYRPT ---
- History of Present Illness Time Seen by Provider: 02/19/24 23:30 Source: patient Exam Limitations: no limitations Patient Subjective Stated Complaint: pt states for last month to month and a half he has been having lt shoulder pain. states he has trouble moving it Triage Nursing Assessment: pt alert and oriented, answers questions approp. pt ambulates back to room with steady gait noted. respirations nonlabored. skin warm and dry. radial pulse and cap refill to rt upper ext wnl/ Physician History: 28-year-old male presents to our ED for evaluation of left shoulder pain. He has been experiencing shoulder pain for approximately 2 months. Patient was in our ED approximately 3 to 4 days ago for the same. Patient had an x-ray of his left shoulder no acute findings. Patient was given Flexeril. Flexeril help pa in temporarily. No interval trauma. Pain described as an ache that is localized. No radiation. Pain worse with movement and palpation. Pain improved with rest. No associated chest pain or shortness of breath. No nausea vomiting or diaphoresis. Patient has not followed up with his primary care doctor regarding his pain. He voices no other complaints or concerns at this time. Portions of this note were created with voice recognition technology. There may be grammatical, spelling, punctuation or sound alike errors Timing/Duration: week(s) (2 months) Severity: moderate Modifying Factors: Improves With: movement Associated Symptoms: denies symptoms Allergies/Adverse Reactions: levetiracetam [From [facility]] Adverse Reaction (Severe, Verified 02/19/24 23:32) Vomiting MEAN/aggressive morphine Adverse Reaction (Severe, Verified 02/19/24 23:32) Rash makes pt mean Hx Tetanus, Diphtheria Vaccination/Date Given: Yes Hx Influenza Vaccination/Date Given: No Hx Pneumococcal Vaccination/Date Given: No Immunizations Up to Date: Yes Travel Risk - International Travel Have you traveled outside of the country in past 3 weeks: No - Emerging Infectious Disease Are you exhibiting symptoms associated with any current EIDs: No - Review of Systems Constitutional: No Symptoms, No Fever, No Chills Eyes: No Symptoms Ears, Nose, & Throat: No Symptoms Respiratory: No Symptoms, No Cough, No Dyspnea Cardiac: No Symptoms, No Chest Pain, No Edema, No Syncope Abdominal/Gastrointestinal: No Symptoms, No Abdominal Pain, No Nausea, No Vomiting, No Diarrhea Genitourinary Symptoms: No Symptoms, No Dysuria Musculoskeletal: No Symptoms, No Back Pain, No Neck Pain Skin: No Symptoms, No Rash Neurological: No Symptoms, No Dizziness, No Focal Weakness, No Sensory Changes Psychological: No Symptoms Endocrine: No Symptoms Hematologic/Lymphatic: No Symptoms Immunological/Allergic: No Symptoms All Other Systems: Reviewed and Negative - Past Medical History Pertinent Past Medical History: Yes Neurological History: Seizures ENT History: No Pertinent History Cardiac History: No Pertinent History Respiratory History: No Pertinent History Endocrine Medical History: No Pertinent History Musculoskeletal History: No Pertinent History GI Medical History: No Pertinent History History: No Pertinent History Psycho-Social History: Anxiety, Attention Deficit Disorder, Bipolar, Depression, Other Male Reproductive Disorders: No Pertinent History Other Medical History: MRSA - Left Shoulder Wound. HX Spleen Injury - Past Surgical History Past Surgical History: Yes Neuro Surgical History: No Pertinent History Cardiac: No Pertinent History Respiratory: No Pertinent History Gastrointestinal: No Pertinent History Genitourinary: No Pertinent History Musculoskeletal: No Pertinent History Male Surgical History: No Pertinent History Other Surgical History: TONSILS Significant Family History: no pertinent family hx - Social History Smoking Status: Current every day smoker How long have you smoked: age 11 Exposure to second hand smoke: Yes Drug Use: marijuana Patient Lives Alone: Yes - Nursing Vital Signs Nursing Vital Signs: Initial Vital Signs Temperature 98.3 F 02/19/24 23:23 Pulse Rate 90 02/19/24 23:23 Respiratory Rate 18 02/19/24 23:23 Blood Pressure 116/75 02/19/24 23:23 O2 Sat by Pulse Oximetry 97 02/19/24 23:23 Pain Scale Pain Intensity 10 - Physical Exam General Appearance: no apparent distress, alert Eye Exam: PERRL/EOMI, eyes nml inspection Ears, Nose, Throat Exam: normal ENT inspection, TMs normal, pharynx normal, moist mucous membranes Neck Exam: normal inspection, non-tender, supple, full range of motion Respiratory Exam: normal breath sounds, lungs clear, airway intact, No respiratory distress Cardiovascular Exam: regular rate/rhythm, normal heart sounds, normal peripheral pulses Gastrointestinal/Abdomen Exam: soft, normal bowel sounds, No tenderness, No mass Back Exam: normal inspection, normal range of motion, No CVA tenderness, No vertebral tenderness Extremity Exam: normal inspection, normal range of motion, pelvis stable, other (The involved left upper extremities neurovascular intact distally compartments are soft cap refill less than 2 seconds) Neurologic Exam: alert, oriented x 3, cooperative, normal mood/affect, nml cerebellar function, nml station & gait, sensation nml, No motor deficits Skin Exam: normal color, warm, dry, No rash Lymphatic Exam: No adenopathy SpO2 Interpretation: normal SpO2: 97 O2 Delivery: Room Air - Course Nursing assessment & vital signs reviewed: Yes Ordered Tests: Medication Summary Generic Name Dose Route Start Last Admin Trade Name Meghna PRN Reason Stop Dose Admin Ketorolac Tromethamine 60 mg 02/19/24 23:41 Ketorolac Tromethamine 30 Mg/Ml Inj IM 02/19/24 23:42 STAT ONE - Progress Progress: improved Progress Note: 28-year-old male presents to our ED with a 2-month history of left shoulder pain. Pain worse with movement and palpation. Pain improved with rest. Patient had a shoulder x-ray approximately 5 days ago for the same thing. The x-ray was negative. Patient had transient improvement with Flexeril. Patient has not followed up with his primary care doctor. Patient received a dose of Toradol and Decadron in our ED. Patient received the left upper extremity sling and a referral to the orthopedic service. No indication for further workup at this time. Will discharge home. Patient agrees to follow-up with his primary care doctor within 48 hours for evaluation. 02/19/24 23:49 Counseled pt/family regarding: diagnosis, need for follow-up - Departure Departure Disposition: Home Clinical Impression: Shoulder pain Condition: Stable Critical Care Time: No Referrals: CHELSEA VALE MD [Primary Care Provider] - Follow up/PCP as directed Additional Instructions: Discharge/Care Plan TARIQKULWANT AUSTIN was seen on 02/19/24 in the Emergency Room. The patient was counseled regarding Diagnosis,Lab results, Imaging studies, need for follow up and when to return to the Emergency Room. Prescriptions given: Discharge Note I have spoken with the patient and/or caregivers. I have explained the patient's condition, diagnosis and treatment plan based on the information available to me at this time. I have answered the patient's and/or caregiver's questions and addressed any concerns. The patient and/or caregivers have as good understanding of the patient's diagnosis, condition and treatment plan as can be expected at this point. The vital signs have been stable. The patient's condition is stable and appropriate for discharge from the emergency department. The patient will pursue further outpatient evaluation with the primary care physician or other designated or consulting physician as outlined in the discharge instructions. The patient and/or caregivers are agreeable to this plan of care and follow-up instructions have been explained in detail. The patient and/or caregivers have received these instruction. The patient/and or caregivers are aware that any significant change in condition or worsening of symptoms should prompt an immediate return to this or the closest emergency department or call 911. Prescriptions: Ketorolac Trometh 10 mg Tab [TORAdol 10 MG TABLET] 10 mg PO TID 5 Days #15 tablet Outpatient Orders: Ortho Referral Time Frame: 1 Day, Facility: [facility], Location: [facility]
[2024-02-19] MEDS: TORAdol 30 mg Injection IM ONE (23:49)
[2024-02-19] MEDS: DECADRON 10MG INJ. IM ONE (23:56)
[2024-02-20 00:09] VITALS: BP 108/60; PULSE 88; O2SAT 98
== END 2024-02-20 00:19 | disposition home or self-care (01) ==
LOC: ED 22:18
DX: M25.512 Pain in left shoulder (principal); Z72.0 Tobacco use
CPT/HCPCS: 96372; 99283; J1100; J1885

== ENCOUNTER 2024-04-07 09:54 | Emergency (ER) | payer MEDICARE ==
--- NOTE | 2024-04-07 10:00 | ERPHSYRPT ---
- History of Present Illness Time Seen by Provider: 04/07/24 10:00 Source: patient Exam Limitations: no limitations Physician History: This is a 28-year-old white male patient of Dr. Vale who presents to the emergency department with headache after head injury. The specifics the patient cannot recall. Patient appears somewhat intoxicated. Patient did state that he did cocaine yesterday but does not admit to any other illicit drug use. Patient has a history in the past of heavy alcohol use. Patient has a history of drug abuse in the past and patient has a history of drug overdose in the past that was intentional. Patient denies being suicidal or homicidal. Patient has a history of seizure disorder, bipolar disorder, anxiety, ADD, and depression. Occurred: this morning Severity: mild Head Injury Location: global Method of Injury: unknown Loss of Consciousness: memory impairment (Possibly secondary to illicit drug use or alcohol rather than trauma) Associated Symptoms: headaches, No shortness of breath, No chest pain Allergies/Adverse Reactions: levetiracetam [From [facility]] Adverse Reaction (Severe, Verified 04/07/24 10:04) Vomiting MEAN/aggressive morphine Adverse Reaction (Severe, Verified 04/07/24 10:04) Rash makes pt mean Home Medications: Unobtainable 04/07/24 [History] Hx Tetanus, Diphtheria Vaccination/Date Given: Yes Hx Influenza Vaccination/Date Given: No Hx Pneumococcal Vaccination/Date Given: No Travel Risk - International Travel Have you traveled outside of the country in past 3 weeks: No - Emerging Infectious Disease Are you exhibiting symptoms associated with any current EIDs: No - Review of Systems Constitutional: No Symptoms Eyes: No Symptoms Ears, Nose, & Throat: No Symptoms Respiratory: No Symptoms Cardiac: No Symptoms Abdominal/Gastrointestinal: No Symptoms Genitourinary Symptoms: No Symptoms Musculoskeletal: No Symptoms Skin: No Symptoms Neurological: Headache, Speech Changes Psychological: Drug Abuse, Anxiety, Depression, No Suicidal Ideations, No Homicidal Ideations Endocrine: No Symptoms Hematologic/Lymphatic: No Symptoms Immunological/Allergic: No Symptoms All Other Systems: Reviewed and Negative - Past Medical History Pertinent Past Medical History: Yes Neurological History: Seizures ENT History: No Pertinent History Cardiac History: No Pertinent History Respiratory History: No Pertinent History Endocrine Medical History: No Pertinent History Musculoskeletal History: No Pertinent History GI Medical History: No Pertinent History History: No Pertinent History Psycho-Social History: Anxiety, Attention Deficit Disorder, Bipolar, Depression, Other Male Reproductive Disorders: No Pertinent History Other Medical History: MRSA - Left Shoulder Wound. HX Spleen Injury - Past Surgical History Past Surgical History: Yes Neuro Surgical History: No Pertinent History Cardiac: No Pertinent History Respiratory: No Pertinent History Gastrointestinal: No Pertinent History Genitourinary: No Pertinent History Musculoskeletal: No Pertinent History Male Surgical History: No Pertinent History Other Surgical History: TONSILS Significant Family History: no pertinent family hx - Social History Smoking Status: Current every day smoker How long have you smoked: age 11 Exposure to second hand smoke: Yes Drug Use: marijuana Patient Lives Alone: Yes - Social Determinants of Health Will the patient participate in the screening: Yes Do you worry about a steady place to live?: No In the past 12 months,have you had to go without utilities?: No Transportation Issues: No Has anyone in your support network made you feel unsafe?: No Have you or anyone in your house had to go without enough: No - Nursing Vital Signs Nursing Vital Signs: Initial Vital Signs Blood Pressure 123/79 04/07/24 10:04 Pain Scale Pain Intensity 0 - [place] Coma Score Best Eye Response ([place]): (4) open spontaneously Best Verbal Response ([place]): (4) confused conversation Best Motor Response ([place]): (6) obeys commands [place] Total: 14 - Physical Exam General Appearance: lethargy (Mild) Head Injury: No no evidence of injury Eye Exam: bilateral eye: normal inspection, PERRL, EOMI ENT Exam: airway nml, nml ext.inspection, No evidence of ENT injury, No dental injury Neck Exam: supple, trachea midline, full range of motion, normal alignment Cardiovascular/Respiratory Exam: chest non-tender, normal breath sounds, regular rate/rhythm, heart sounds normal, no respiratory distress Gastrointestinal/Abdominal Exam: soft, non tender, no distention, no mass, no guarding, no ecchymosis, no organomegaly, no pulsatile mass, normal bowel sounds Rectal Exam: not done Back Exam: normal inspection, normal range of motion, No CVA tenderness Extremity Exam: non-tender, normal range of motion, normal inspection, normal capillary refill, no calf tenderness, no pedal edema, pelvis stable 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, 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: 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 hearing, PERRL, abnormal speech (Intoxicated speech), tongue midline Motor/Sensory Exam: no motor deficit, no sensory deficit, no pronator drift Skin Exam: normal color, warm, dry Lymphatic Exam: No adenopathy SpO2 Interpretation: normal O2 Delivery: Room Air - Course Nursing assessment & vital signs reviewed: Yes Ordered Tests: Active Orders 24 hr Category Date Time Status HEAD WITHOUT CONTRAST [CT] Stat Exams 04/07/24 10:14 Completed ACETAMINOPHEN Stat Lab 04/07/24 10:40 Completed CBC W DIFF Stat Lab 04/07/24 10:40 Completed CMP Stat Lab 04/07/24 10:40 Completed ETHYL ALCOHOL Stat Lab 04/07/24 10:40 Completed SALICYLATE Stat Lab 04/07/24 10:40 Completed UA W/RFX UR CULTURE Stat Lab 04/07/24 10:31 Ordered Urine Triage Profile Stat Lab 04/07/24 10:31 Ordered Lab/Rad Data: Laboratory Result Diagrams 04/07/24 10:40 04/07/24 10:40 Laboratory Results 04/07/24 04/07/24 Range/Units 10:40 10:40 WBC 14.2 H (4.23-9.07) x10^3/uL RBC 4.93 (4.63-6.08) x10^6/uL Hgb 14.2 (13.7-17.5) g/dL Hct 41.2 (40.1-51.0) % MCV 83.6 (79.0-92.2) fL MCH 28.8 (25.7-32.2) pg MCHC 34.5 (32.3-36.5) g/dL RDW 13.1 (11.6-14.4) % Plt Count 327 (163-337) x10^3/uL MPV 10.3 (9.4-12.4) fL Gran % 70.6 H (34.0-67.9) % Immature Gran % (Auto) 0.2 (0.001-0.429) % Nucleat RBC Rel Count 0.0 (0.00-0.2) % Eos # (Auto) 0.15 (0.04-0.54) x10^3/uL Immature Gran # (Auto) 0.03 (0.001-0.031) x10^3u/L Absolute Lymphs (auto) 2.82 (1.32-3.57) x10^3/uL Absolute Monos (auto) 1.11 H (0.30-0.82) x10^3/uL Absolute Nucleated RBC 0.00 (0.00-0.012) x10^3u/L Lymphocytes % 19.8 L (21.8-53.1) % Monocytes % 7.8 (5.3-12.2) % Eosinophils % 1.1 (0.8-7.0) % Basophils % 0.5 (0.2-1.2) % Absolute Granulocytes 10.04 H (1.78-5.38) x10^3/uL Basophils # 0.07 (0.01-0.08) x10^3/uL Sodium 139 (135-145) mmol/L Potassium 3.9 (3.5-5.1) mmol/L Chloride 105 (98-107) mmol/L Carbon Dioxide 26 (22-30) mmol/L Anion Gap 11.7 (5-15) MEQ/L BUN 16 (9-20) mg/dL Creatinine 1.01 (0.66-1.25) mg/dL Estimated GFR 103.2 ML/MIN Glucose 103 (74-106) mg/dL Calcium 9.9 (8.4-10.2) mg/dL Total Bilirubin 0.80 (0.2-1.3) mg/dL AST 26 (17-59) U/L ALT 30 (0-50) U/L Alkaline Phosphatase 121 (38-126) U/L Serum Total Protein 8.0 (6.3-8.2) g/dL Albumin 4.5 (3.5-5.0) g/dL Salicylates < 1.0 L (2-20) mg/dL Acetaminophen < 10 L (10-30) ug/ml Ethyl Alcohol < 10 (0-10) mg/dL - Progress Progress Note: 04/07/24 10:36 My medical decision making and the assignment of low to moderate complexity in this patient is based on review of the patient's past medical history, review patient medication list, review patient drug allergy list, history present illness and physical findings on examination. The workup in this patient includes CT scan of the head, CBC, CMP, alcohol level, urinalysis, urine drug triage, acetaminophen level, salicylate level. The differential diagnosis includes but is not limited to illicit drug and/or alcohol intoxication, acute intracranial abnormality 04/07/24 12:01 I have interpreted the patient's laboratory data results that have returned. Based on those laboratory data results, there is no evidence of any acute or emergent abnormality. Patient is refusing the urine studies. The CT scan of the head without contrast was interpreted by the radiologist and I reviewed the impression. The impression states no acute intracranial abnormality. Counseled pt/family regarding: lab results, diagnosis, need for follow-up, rad results Medical Desision Making - Diagnostic Testing Diagnostic test were ordered, analyzed, and reviewed by me: Yes Radiological Interpretation: Reviewed by me, Teleradiologist Report - Risk of complications Low Risk: Low risk of morbidity from additional dx testing or treatment - Departure Departure Disposition: Home Clinical Impression: Head injury Condition: Stable Critical Care Time: No Referrals: CHELSEA VALE MD [Primary Care Provider] - Follow up/PCP as directed Additional Instructions: Avoid illicit drug use. Avoid alcohol use. Use Tylenol and ibuprofen for headaches. Call your primary care provider today to make arranges for follow-up appointment for further evaluation and management.
[2024-04-07 10:28] VITALS: TEMP 97.7
[2024-04-07 10:45] LABS: Absolute Neutrophil Ct (ANC) 10.04 x10^3/uL (1.78-5.38); BASOPHIL % 0.5 % (0.2-1.2); Basophil (Absolute #) 0.07 x10^3/uL (0.01-0.08); Eosinophil % 1.1 % (0.8-7.0); Eosinophil (Absolute #) 0.15 x10^3/uL (0.04-0.54); Hematocrit 41.2 % (40.1-51.0); Hemoglobin 14.2 g/dL (13.7-17.5); IMMATURE GRAN # 0.03 x10^3u/L (0.001-0.031); IMMATURE GRAN % 0.2 % (0.001-0.429); Lymphocyte (Absolute #) 2.82 x10^3/uL (1.32-3.57); Lymphocytes % 19.8 % (21.8-53.1); Mean Cell Volume 83.6 fL (79.0-92.2); Mean Corpuscular Hemoglobin 28.8 pg (25.7-32.2); Mean Corpuscular Hgb Concent. 34.5 g/dL (32.3-36.5); Mean Platelet Volume 10.3 fL (9.4-12.4); Monocyte (Absolute #) 1.11 x10^3/uL (0.30-0.82); Monocytes % 7.8 % (5.3-12.2); Neutrophil % 70.6 % (34.0-67.9); Platelet Count 327 x10^3/uL (163-337); Red Blood Count 4.93 x10^6/uL (4.63-6.08); Red Cell Distribution Width 13.1 % (11.6-14.4); White Blood Count 14.2 x10^3/uL (4.23-9.07)
[2024-04-07 10:58] LABS: ACETAMINOPHEN < 10 ug/ml (10-30); ALBUMIN 4.5 g/dL (3.5-5.0); ALKALINE PHOSPHATASE 121 U/L (38-126); ANION GAP 11.7 MEQ/L (5-15); BLOOD UREA NITROGEN 16 mg/dL (9-20); CHLORIDE 105 mmol/L (98-107); Calcium 9.9 mg/dL (8.4-10.2); Carbon Dioxide 26 mmol/L (22-30); Creatinine 1 1.01 mg/dL (0.66-1.25); EST GLOMERULAR FILTRATION RATE 103.2 ML/MIN; ETHYL ALCOHOL < 10 mg/dL (0-10); Glucose 103 mg/dL (74-106); Potassium 3.9 mmol/L (3.5-5.1); SALICYLATE < 1.0 mg/dL (2-20); SGOT/AST 26 U/L (17-59); SGPT/ALT 30 U/L (0-50); SODIUM 139 mmol/L (135-145)
[2024-04-07 11:09] VITALS: RESP 17
--- NOTE | 2024-04-07 11:58 | XRAY ---
Indication: Headache. Head injury. Multiple contiguous axial images obtained through the head without contrast. Comparison: October 03, 2014. Normal appearing brain parenchyma, ventricles, and bony calvarium. Visualized paranasal sinuses and mastoid air cells are clear. Impression: Continued normal CT head without contrast exam.
[2024-04-07 12:19] LABS: Appearance Clear (Clear); Bacteria None Seen /HPF (None Seen); Bilirubin Negative (Negative); Blood Negative (Negative); Epithelial Cells None Seen /HPF (None Seen); Glucose, Urine Negative (Negative); Hyaline Casts NONE SEEN /LPF (0-2); Ketones Negative (Negative); Leukocyte Esterase Negative (Negative); Nitrite Negative (Negative); Ph 5.5 (4.6-8.0); Protein,Urine Dip Trace (Negative); RBC 0-2 /HPF (0-5); Specific Gravity >=1.030 (1.005-1.030); WBC 0-2 /HPF (0-5)
[2024-04-07 12:23] LABS: ADD URINE CULTURE? NO (NO)
[2024-04-07 12:45] LABS: Barbiturate,Urine NEGATIVE (NEGATIVE); Benzodiazepine,Urine NEGATIVE (NEGATIVE); Cocaine,Urine NEGATIVE (NEGATIVE); Methadone,Urine NEGATIVE (NEGATIVE); Opiate,Urine NEGATIVE (NEGATIVE); PCP,Urine NEGATIVE (NEGATIVE); THC,Urine POSITIVE (NEGATIVE)
[2024-04-07 13:15] VITALS: PULSE 60; O2SAT 98
[2024-04-07 13:34] VITALS: BP 93/57
[2024-04-07 13:48] LABS: Amphetamine,Urine POSITIVE (NEGATIVE)
== END 2024-04-07 13:40 | disposition home or self-care (01) ==
LOC: ED 09:54
DX: S09.90XA Unspecified injury of head, initial encounter (principal); F15.10 Other stimulant abuse, uncomplicated; F12.10 Cannabis abuse, uncomplicated; R51.9 Headache, unspecified; Z72.0 Tobacco use
CPT/HCPCS: 36415; 70450; 80053; 80143; 80179; 80307; 81001; 82077; 85025; 99283

== ENCOUNTER 2025-01-26 12:58 | Emergency (ER) | payer MEDICARE ==
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
[2025-01-26 13:15] VITALS: RESP 24; TEMP 97.9; O2SAT 96
[2025-01-26 14:26] VITALS: BP 118/79; PULSE 102
== END 2025-01-26 14:28 | disposition left against medical advice (07) ==
LOC: ED 12:58
DX: S09.90XA Unspecified injury of head, initial encounter (principal); S00.83XA Contusion of other part of head, initial encounter; Y00.XXXA Assault by blunt object, initial encounter; Z72.0 Tobacco use
CPT/HCPCS: 99281

== ENCOUNTER 2025-02-11 22:33 | Emergency (ER) | payer MEDICARE ==
[2025-02-11 23:11] LABS: Absolute Neutrophil Ct (ANC) 8.08 x10^3/uL (1.78-5.38); BASOPHIL % 0.7 % (0.2-1.2); Eosinophil % 1.2 % (0.8-7.0); Eosinophil (Absolute #) 0.17 x10^3/uL (0.04-0.54); Hematocrit 45.9 % (40.1-51.0); Hemoglobin 15.8 g/dL (13.7-17.5); IMMATURE GRAN # 0.04 x10^3u/L (0.001-0.031); IMMATURE GRAN % 0.3 % (0.001-0.429); Lymphocyte (Absolute #) 4.51 x10^3/uL (1.32-3.57); Lymphocytes % 32.6 % (21.8-53.1); Mean Cell Volume 85.5 fL (79.0-92.2); Mean Corpuscular Hemoglobin 29.4 pg (25.7-32.2); Mean Corpuscular Hgb Concent. 34.4 g/dL (32.3-36.5); Mean Platelet Volume 10.8 fL (9.4-12.4); Monocyte (Absolute #) 0.95 x10^3/uL (0.30-0.82); Monocytes % 6.9 % (5.3-12.2); Neutrophil % 58.3 % (34.0-67.9); Platelet Count 308 x10^3/uL (163-337); Red Blood Count 5.37 x10^6/uL (4.63-6.08); White Blood Count 13.9 x10^3/uL (4.23-9.07)
[2025-02-11 23:20] LABS: Amphetamine,Urine NEGATIVE (NEGATIVE); Barbiturate,Urine NEGATIVE (NEGATIVE); Benzodiazepine,Urine POSITIVE (NEGATIVE); Cocaine,Urine NEGATIVE (NEGATIVE); Opiate,Urine NEGATIVE (NEGATIVE); PCP,Urine NEGATIVE (NEGATIVE); THC,Urine POSITIVE (NEGATIVE)
[2025-02-11 23:23] LABS: Methadone,Urine NEGATIVE (NEGATIVE)
[2025-02-11 23:24] LABS: ACETAMINOPHEN < 10 ug/ml (10-30); ALBUMIN 4.9 g/dL (3.5-5.0); ALKALINE PHOSPHATASE 108 U/L (38-126); ANION GAP 20.1 MEQ/L (5-15); BLOOD UREA NITROGEN 9 mg/dL (9-20); CHLORIDE 106 mmol/L (98-107); Calcium 10.2 mg/dL (8.4-10.2); Carbon Dioxide 23 mmol/L (22-30); Creatinine 1 0.93 mg/dL (0.66-1.25); EST GLOMERULAR FILTRATION RATE 113.3 ML/MIN; ETHYL ALCOHOL 150 mg/dL (0-10); Glucose 100 mg/dL (74-106); Potassium 3.8 mmol/L (3.5-5.1); SALICYLATE < 1.0 mg/dL (2-20); SGOT/AST 61 U/L (17-59); SGPT/ALT 111 U/L (0-50); SODIUM 145 mmol/L (135-145)
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
--- NOTE | 2025-02-11 23:40 | ERPHSYRPT ---
- History of Present Illness Time Seen by Provider: 02/11/25 23:31 Source: patient, family Exam Limitations: no limitations Patient Subjective Stated Complaint: law enforcement reports that pt lives with his grandmother, asael pt went out with some friends and was drinking, when grandmother arrived home she found pt with a belt and a rope wrapped around his neck and had tied them to the top of the freezer attempting to hang himself. pt states that aasel after drinking he started thinking about how his relationship with his child has suffered from his actions in the past, he states he has been working on rebuilding their relationship. he said these thoughts lead to him taking actions to harm himself. at this time pt states he is no longer suicidal and realized he has made a mistake. pt states he just wants the thoughts about failing his child to stop. pt reports that he is not currently taking his pscyh meds. Triage Nursing Assessment: pt is aox3, pt appears intoxicated, speech is slightly slurred, pt quick to anger, pt demanding, pupils perrl, afebrile, resps easy and non labored, cap refill < 3 seconds, radial pulses strong and equal, pt pt skin warm dry. no obvious injury noted. Physician History: Patient is a 29-year-old male presents to the emergency department via PD for evaluation of suicide attempt. Patient lives at home with his grandmother. Grandmother states that patient has been off of his psychiatric medications. Patient recently broke up with his girlfriend. Today patient went drinking with a friend. Grandmother states when she arrived home she fell patient with a rope wrapped around his neck. Grandmother took the rope away then patient wrapped a belt around his neck. Patient became very belligerent. Grandmother states patient began to tear up the house. Grandmother reports that patient has had many suicide attempts in the past. He has attempted to overdose with a opiate. Patient was saved because of Narcan per mother. Patient states that he is a poor father. Patient states he has not been present for his son in the past 2 years. Patient appears to be depressed and is blaming himself for the of family members Patient reports that he is no longer suicidal and wants to leave. Patient's grandmother was in the room then patient began to become belligerent loud and threatening to his grandmother. Grandmother left the room. Patient stating he wants grandmother back into the room but grandmother does not feel safe. Patient voices no other complaints or concerns at this time. Portions of this note were created with voice recognition technology. There may be grammatical, spelling, punctuation or sound alike errors Timing/Duration: today Severity of Symptoms-Max: moderate Severity of Symptoms-Current: mild Context related to: son, other Suicidal thoughts: attempt Associated Symptoms: agitated, depressed, suicidal ideation Previous symptoms: same symptoms as today Allergies/Adverse Reactions: levetiracetam [From [facility]] Adverse Reaction (Severe, Verified 02/11/25 22:57) Vomiting MEAN/aggressive Home Medications: No Reportable Medications [No Reported Medications] 01/26/25 [History] Hx Tetanus, Diphtheria Vaccination/Date Given: Yes Hx Influenza Vaccination/Date Given: No Hx Pneumococcal Vaccination/Date Given: No Immunizations Up to Date: Yes Travel Risk - International Travel Have you traveled outside of the country in past 3 weeks: No - Emerging Infectious Disease Are you exhibiting symptoms associated with any current EIDs: No Symptoms: Vomitting - Past Medical History Pertinent Past Medical History: Yes Neurological History: Seizures ENT History: No Pertinent History Cardiac History: No Pertinent History Respiratory History: No Pertinent History Endocrine Medical History: No Pertinent History Musculoskeletal History: No Pertinent History GI Medical History: No Pertinent History History: No Pertinent History Psycho-Social History: Anxiety, Attention Deficit Disorder, Bipolar, Depression, Other Male Reproductive Disorders: No Pertinent History Other Medical History: MRSA - Left Shoulder Wound. HX Spleen Injury - Past Surgical History Past Surgical History: Yes Neuro Surgical History: No Pertinent History Cardiac: No Pertinent History Respiratory: No Pertinent History Gastrointestinal: No Pertinent History Genitourinary: No Pertinent History Musculoskeletal: No Pertinent History Male Surgical History: No Pertinent History Other Surgical History: TONSILS Significant Family History: no pertinent family hx - Social History Smoking Status: Current every day smoker How long have you smoked: age 11 Exposure to second hand smoke: Yes Drug Use: marijuana - Social Determinants of Health Will the patient participate in the screening: Yes Do you worry about a steady place to live?: No Do you have any problems with any of the following?: No known problems In the past 12 months,have you had to go without utilities?: No Transportation Issues: No Has anyone in your support network made you feel unsafe?: No Have you or anyone in your house had to go w/o enough food: No - Review of Systems Constitutional: No Symptoms, No Fever, No Chills Eyes: No Symptoms Ears, Nose, & Throat: No Symptoms Respiratory: No Symptoms, No Cough, No Dyspnea Cardiac: No Symptoms, No Chest Pain, No Edema, No Syncope Abdominal/Gastrointestinal: No Symptoms, No Abdominal Pain, No Nausea, No Vomiting, No Diarrhea Genitourinary Symptoms: No Symptoms, No Dysuria Musculoskeletal: No Symptoms, No Back Pain, No Neck Pain Skin: No Symptoms, No Rash Neurological: No Symptoms, No Dizziness, No Focal Weakness, No Sensory Changes Psychological: No Symptoms Endocrine: No Symptoms Hematologic/Lymphatic: No Symptoms Immunological/Allergic: No Symptoms All Other Systems: Reviewed and Negative - Nursing Vital Signs Nursing Vital Signs: Initial Vital Signs Pulse Rate 95 H 02/11/25 22:37 Respiratory Rate 18 02/11/25 22:37 Blood Pressure 112/74 02/11/25 22:37 O2 Sat by Pulse Oximetry 92 L 02/11/25 22:37 Pain Scale Pain Intensity 0 - Physical Exam General Appearance: no apparent distress Eyes, Ears, Nose, Throat Exam: normal ENT inspection, moist mucous membranes Neck Exam: normal inspection, non-tender, supple Respiratory Exam: normal breath sounds, lungs clear, airway intact, No respiratory distress Cardiovascular Exam: regular rate/rhythm, normal heart sounds, normal peripheral pulses, No edema Gastrointestinal/Abdominal Exam: soft, No tenderness, No distention Extremities Exam: normal inspection, normal range of motion, No evidence of injury, No edema Current Suicidality: denies suicide plan Neurological Exam: alert, cutting tool sharpener II-XII nml as tested, oriented x 3 Appearance: appropriate appearance, appropriate insight Behavior/Eye Contact/Speech: alert & cooperative, good eye contact, normal speech, agitated Thoughts/Hallucinations: normal thought pattern Skin Exam: normal color, warm, dry, No rash SpO2 Interpretation: normal SpO2: 92 O2 Delivery: Room Air - Course Nursing assessment & vital signs reviewed: Yes EKG Interpreted by Me: RATE ([id number]), Sinus Rhythm, NORMAL AXIS, NORMAL INTERVALS, NORMAL QRS Ordered Tests: Active Orders 24 hr Category Date Time Status Human Resources District Manager STAT Care 02/11/25 22:51 Active EKG-ER Only STAT Care 02/11/25 22:50 Active ACETAMINOPHEN Stat Lab 02/11/25 23:10 Completed CBC W DIFF Stat Lab 02/11/25 23:10 Completed CMP Stat Lab 02/11/25 23:10 Completed ETHYL ALCOHOL Stat Lab 02/11/25 23:10 Completed SALICYLATE Stat Lab 02/11/25 23:10 Completed Urine Triage Profile Stat Lab 02/11/25 22:51 Completed Lab/Rad Data: Laboratory Result Diagrams 02/11/25 23:10 02/11/25 23:10 Laboratory Results 02/11/25 02/11/25 02/11/25 Range/Units 23:10 23:10 22:51 WBC 13.9 H (4.23-9.07) x10^3/uL RBC 5.37 (4.63-6.08) x10^6/uL Hgb 15.8 (13.7-17.5) g/dL Hct 45.9 (40.1-51.0) % MCV 85.5 (79.0-92.2) fL MCH 29.4 (25.7-32.2) pg MCHC 34.4 (32.3-36.5) g/dL RDW 13.0 (11.6-14.4) % Plt Count 308 (163-337) x10^3/uL MPV 10.8 (9.4-12.4) fL Gran % 58.3 (34.0-67.9) % Immature Gran % (Auto) 0.3 (0.001-0.429) % Nucleat RBC Rel Count 0.0 (0.00-0.2) % Eos # (Auto) 0.17 (0.04-0.54) x10^3/uL Immature Gran # (Auto) 0.04 H (0.001-0.031) x10^3u/L Absolute Lymphs (auto) 4.51 H (1.32-3.57) x10^3/uL Absolute Monos (auto) 0.95 H (0.30-0.82) x10^3/uL Absolute Nucleated RBC 0.00 (0.00-0.012) x10^3u/L Lymphocytes % 32.6 (21.8-53.1) % Monocytes % 6.9 (5.3-12.2) % Eosinophils % 1.2 (0.8-7.0) % Basophils % 0.7 (0.2-1.2) % Absolute Granulocytes 8.08 H (1.78-5.38) x10^3/uL Basophils # 0.10 H (0.01-0.08) x10^3/uL Sodium 145 (135-145) mmol/L Potassium 3.8 (3.5-5.1) mmol/L Chloride 106 (98-107) mmol/L Carbon Dioxide 23 (22-30) mmol/L Anion Gap 20.1 H (5-15) MEQ/L BUN 9 (9-20) mg/dL Creatinine 0.93 (0.66-1.25) mg/dL Estimated GFR 113.3 ML/MIN Glucose 100 (74-106) mg/dL Calcium 10.2 (8.4-10.2) mg/dL Total Bilirubin 0.40 (0.2-1.3) mg/dL AST 61 H (17-59) U/L ALT 111 H (0-50) U/L Alkaline Phosphatase 108 (38-126) U/L Serum Total Protein 8.0 (6.3-8.2) g/dL Albumin 4.9 (3.5-5.0) g/dL Salicylates < 1.0 L (2-20) mg/dL Urine Opiates Level NEGATIVE (NEGATIVE) Ur Methadone NEGATIVE (NEGATIVE) Acetaminophen < 10 L (10-30) ug/ml Urine Barbiturates NEGATIVE (NEGATIVE) Ur Phencyclidine (PCP) NEGATIVE (NEGATIVE) Urine Amphetamine NEGATIVE (NEGATIVE) U Benzodiazepine Level POSITIVE A (NEGATIVE) Urine Cocaine NEGATIVE (NEGATIVE) Urine Marijuana (THC) POSITIVE A (NEGATIVE) Ethyl Alcohol 150 H (0-10) mg/dL - Progress Progress: improved Progress Note: 29-year-old male presents for emergency department for evaluation of suicide attempt. Patient has been noncompliant with medication regimen. Today patient went on a drinking binge and attempted to hang himself when he was found by his grandmother. Physical exam nonremarkable. There is no signs of strangulation around patient's neck. Airway patent. Physical exam nonremarkable. Patient was transiently aggressive. However he calm down spontaneously without medicinal intervention. Patient was evaluated by the [facility]. Patient accepted at 1:05 AM by . Patient is under an emergency correction order. Portions of this note were created with voice recognition technology. There may be grammatical, spelling, punctuation or sound alike errors Complexity of problem addressed is moderate acute complicated. No critical care time. Complex of data reviewed and analyzed as extensive. Test ordered test reviewed results analyzed and correlated clinically with history and physical exam. Management discussed with [facility]. Risk of complication and or risk of morbidity/mortality of patient management is high. Patient requires transfer to higher level of care. Vital stable. Time spent to transfer patient is approximately 20 minutes. Plan of care established for shared decision making. Patient's guardian/ grandmother involved with our disposition. No social determinants of health present to impede follow-up. Portions of this note were created with voice recognition technology. There may be grammatical, spelling, punctuation or sound alike errors 02/12/25 01:43 Counseled pt/family regarding: lab results, diagnosis - Departure Departure Disposition: Transfer Clinical Impression: Benzodiazepine use, Alcohol intoxication, Marijuana use, Suicide attempt, Aggressive behavior, Noncompliance with medication regimen Condition: Stable Critical Care Time: No Referrals: CHELSEA VALE MD [Primary Care Provider, INTERNAL [facility]IC[facility]] - Follow up/PCP as directed
[2025-02-12 03:00] VITALS: BP 99/57; PULSE 78; RESP 20; O2SAT 95
== END 2025-02-12 02:55 ==
LOC: ED 22:33
DX: T14.91XA Suicide attempt, initial encounter (principal); X83.8XXA Intentional self-harm by other specified means, initial encounter; F19.90 Other psychoactive substance use, unspecified, uncomplicated; F10.929 Alcohol use, unspecified with intoxication, unspecified; Y90.6 Blood alcohol level of 120-199 mg/100 ml; F12.90 Cannabis use, unspecified, uncomplicated; R45.6 Violent behavior; Z91.148 Patient's other noncompliance with medication regimen for other reason; Z72.0 Tobacco use
CPT/HCPCS: 36415; 80053; 80143; 80179; 80307; 82077; 85025; 93005; 93041; 99285